=== PATIENT | female | born 1935 | race Caucasian/White ===

== ENCOUNTER → 2018-06-21 08:26 | Outpatient (CLI) | payer MEDICARE, OTHER, SELFPAY ==
[2018-06-21 10:11] LABS: Vitamin B12 281 pg/mL (239-931)
== END ==
PROVIDERS: PCP Student in an Organized Health Care Education/Training Program; Visit Provider Student in an Organized Health Care Education/Training Program
DX: E53.8 Deficiency of other specified B group vitamins (principal)
CPT/HCPCS: 36415; 82607

== ENCOUNTER → 2019-01-04 15:39 | Outpatient (CLI) | payer MEDICARE, OTHER, SELFPAY ==
[2019-01-04 17:08] LABS: BUN Creatinine Ratio 26.7 (6-22); Blood Urea Nitrogen 16 mg/dL (7-17); Calcium 9.4 mg/dL (8.4-10.2); Carbon Dioxide 27 mmol/L (22-32); Chloride 106 mmol/L (98-107); Estimated Glomerular Filt Rate > 60.0 mL/min (>60); Glucose 107 mg/dL (80-110); HEMOLYSIS < 15 (0-50); Potassium 4.8 mmol/L (3.4-5.1); Sodium 141 mmol/L (137-145)
[2019-01-04 17:26] LABS: Free T3, Triiodothyronine Free 3.62 pg/mL (2.77-5.27); Free T4, Direct Thyroxine 1.13 ng/dL (0.78-2.19); Vitamin D 25 Hydroxy (D3) 26.4 ng/mL (30.0-100.0)
[2019-01-04 17:39] LABS: Thyroid Stimulating Hormone 0.64 uIU/mL (0.47-4.68)
== END ==
PROVIDERS: PCP Student in an Organized Health Care Education/Training Program; Visit Provider Student in an Organized Health Care Education/Training Program
DX: E03.9 Hypothyroidism, unspecified (principal); M80.00XA Age-related osteoporosis with current pathological fracture, unspecified site, initial encounter for fracture; K21.9 Gastro-esophageal reflux disease without esophagitis
CPT/HCPCS: 36415; 80048; 82306; 84439; 84443; 84481

== ENCOUNTER → 2019-03-01 13:11 | Outpatient (CLI) | payer MEDICARE, OTHER, SELFPAY | PROVIDERS: PCP Student in an Organized Health Care Education/Training Program; Visit Provider Student in an Organized Health Care Education/Training Program | DX: M80.00XA Age-related osteoporosis with current pathological fracture, unspecified site, initial encounter for fracture (principal); Z78.0 Asymptomatic menopausal state | CPT/HCPCS: 77080 ==

== ENCOUNTER → 2020-07-25 13:54 | Outpatient (CLI) | payer MEDICARE, OTHER, SELFPAY ==
[2020-07-25 14:10] LABS: Bacteria Urine None Seen
[2020-07-25 15:09] LABS: Appearance Urine UA CLOUDY; Bilirubin Urine UA NEGATIVE (NEGATIVE); Color Urine UA YELLOW; Glucose Urine UA NEGATIVE (Negative); Ketones Urine UA NEGATIVE (NEGATIVE); Leukocyte Esterase Urine UA 2+ (NEGATIVE); Nitrite Urine UA NEGATIVE (Negative); Occult Blood Urine UA 1+ (Negative); Protein Urine UA NEGATIVE (Negative); Urobilinogen Urine UA 0.2 E.U./dL (0.2)
[2020-07-25 15:31] LABS: Amorphous Sediment Urine 2+; Culture Indicated Urine Specimen Cultured; RBC Urine 1-5/HPF (0-5/HPF); WBC Urine 5-10/HPF (0-5/HPF)
== END ==
PROVIDERS: PCP Student in an Organized Health Care Education/Training Program; Referring Provider Student in an Organized Health Care Education/Training Program; Visit Provider Student in an Organized Health Care Education/Training Program
DX: R30.0 Dysuria (principal)
CPT/HCPCS: 81001; 87077; 87086; 87186

== ENCOUNTER → 2020-08-16 13:39 | Outpatient (CLI) | payer MEDICARE, SELFPAY | PROVIDERS: PCP Student in an Organized Health Care Education/Training Program; Referring Provider Student in an Organized Health Care Education/Training Program; Visit Provider Student in an Organized Health Care Education/Training Program | DX: M81.0 Age-related osteoporosis without current pathological fracture (principal); Z78.0 Asymptomatic menopausal state; E55.9 Vitamin D deficiency, unspecified; Z87.891 Personal history of nicotine dependence; Z91.89 Other specified personal risk factors, not elsewhere classified | CPT/HCPCS: 77080 ==

== ENCOUNTER 2021-02-27 20:30 | Emergency (ER) | payer MEDICARE, SELFPAY ==
[2021-02-27 20:36] VITALS: BP 179/93; PULSE 77; RESP 20; TEMP 37; O2SAT 98
--- NOTE | 2021-02-27 20:44 | PC.NURSE ---
Pt states esophageal spasms causing vomiting since 1729, has had similar issues for past year. States eating slowly when she remembers prevents episodes.
--- NOTE | 2021-02-27 21:58 | ED_ITS ---
HPI - Nausea/Vomiting/Diarrhea General Chief complaint: Nausea/Vomiting/Diarrhea Stated complaint: vomiting, esophageal pain Time Seen by Provider: 02/27/21 20:45 Source: patient and family () Mode of arrival: Ambulatory Limitations: no limitations History of Present Illness HPI Narrative: This is an 86-year-old female comes to the emergency department with vomiting and esophageal pain at the lower chest shortly after eating chicken. Patient states she has had episodes where food seems to get stuck or she has a spasm of her esophagus frequently but typically clears after a minute or 2. His most recent episode started about 5:00pm this evening and she has continued to spit up filmy clear saliva like emesis. Patient states still painful and feels tight. Patient denies any fevers or chills. She denies any shortness of breath. She denies any diarrhea. No black or bloody stools. She has had mild constipation but took some MiraLax and that improved. She does have a history of Parkinson's disease. She has had multiple episodes similar to this in the past but they have always resolved on their own without any intervention. She did try Tums this evening which also came back up. She has not been able to keep down any liquids afterwards. Related Data Home Medications Medication Instructions Recorded Confirmed gabapentin 400 mg capsule 400 mg PO BEDTIME 01/04/19 10/23/20 Previous Rx's Medication Instructions Recorded carbidopa ER 50 mg-levodopa 200 mg 1 tab PO BEDTIME #30 tab 01/04/19 tablet,extended release (Sinemet CR) naproxen sodium 220 mg capsule 220 mg PO BID-TID PRN #30 cap 01/04/19 (Aleve) calcitonin (salmon) 200 1 spray INTRANASAL (ALT) DAILY 03/03/19 unit/actuation nasal spray #3.7 ml cyanocobalamin (vitamin B-12) 100 mcg IM QMONTH #1 ml 10/11/19 1,000 mcg/mL injection solution sertraline 25 mg tablet (Zoloft) 25 mg PO DAILY #90 tab 10/17/20 trazodone 50 mg tablet 50 mg PO BEDTIME PRN #90 tab 11/19/20 levothyroxine 75 mcg tablet 75 mcg PO QAM #90 tab 11/26/20 (Synthroid) Allergies Allergy/AdvReac Type Severity Reaction Status Date / Time erythromycin base Allergy Unknown Unverified 10/23/20 14:29 [From ERYTHROCIN] levofloxacin [LEVOFLOXACIN] Allergy Unknown Unverified 10/23/20 14:29 simvastatin [SIMVASTATIN] Allergy Unknown Unverified 10/23/20 14:29 Review of Systems Review of Systems ROS Unobtainable: All systems reviewed & are unremarkable except as noted in HPI and below Patient History Medical History Allergic rhinitis Chronic low back pain Chronic neck pain Closed left clavicular fracture (08/11/12) Dyskinesia of esophagus Fracture of left pelvis (05/10/13) GERD (gastroesophageal reflux disease) Graves' disease Hearing loss (~1970) History of polymyalgia rheumatica (07/2012) Hypothyroidism (1963) Loss of smell Parkinson's disease (08/2013) Pneumonia (1977) Pulmonary nodule Substernal chest pain (2001) Umbilical hernia Urinary incontinence Surgical History History of cardiac catheterization (06/17/07) History of cataract removal with insertion of prosthetic lens (2006) History of cochlear implant (1998) History of colonoscopy (08/20/10) History of colonoscopy (09/21/00) History of colonoscopy (03/09/06) History of dacryocystorhinostomy (2005) History of dental surgery (1988) History of esophagogastroduodenoscopy (EGD) (08/20/10) History of fundoplication (07/12/08) History of hand surgery (1999) History of intestinal surgery (09/07/12) History of toe surgery (~1979) History of toe surgery (1999) History of total right knee replacement (12/15/11) Status post hysterectomy (1983) Status post knee surgery (1987) Status post right rotator cuff repair (08/2005) Family History Father Diabetes mellitus Heart disease Hypertension Stroke Leukemia Mother Stroke Gallbladder disease Brother Prostate cancer Brother Colon cancer Sister Lung cancer Thyroid disease Social History Smoking Status: Never smoker Smoking Status: Never smoker Exam Narrative Exam Narrative: GENERAL: Alert and oriented x three, elderly female in mild distress. HEENT: Head normocephalic, atraumatic, EOMI, pupils reactive, face symmetric, moist mucous membranes NECK: Supple, full range of motion CARDIOVASCULAR: Regular rate and rhythm without murmurs, rubs or gallops. RESPIRATORY: Breath sounds equal bilaterally, no wheezes rales or rhonchi. ABDOMEN: Soft, nontender. Normoactive bowel sounds all 4 quadrants. No guarding or rebound, rigidity, no mass. Patient has emesis bag with small amount of clear saliva like emesis. : No CVA tenderness EXTREMITIES: Normal range of motion, no clubbing or edema. Neurovascularly intact NEUROLOGICAL: Cranial nerves II through XII grossly intact. Moving all extremities SKIN: Warm, dry, no petechiae, no rashes or lesions. Initial Vital Signs Initial Vital Signs: Vital Signs Temperature 98.6 F 02/27/21 20:36 Pulse Rate 77 02/27/21 20:36 Respiratory Rate 20 02/27/21 20:36 Blood Pressure 179/93 H 02/27/21 20:36 Pulse Oximetry 98 02/27/21 20:36 Course Orders Ordered: Discontinued Medications Glucagon (Glucagon,Human Recombinant 1 Mg/Ml Vial) 1 mg IV NOW ONE Stop: 02/27/21 22:08 Last Admin: 02/27/21 22:27 Dose: 1 mg Documented by: YESY Reevaluation(s) Reevaluation #1: Patient symptoms resolved after glucagon. Vital Signs Vital signs: Vital Signs - 8 hr 02/27/21 20:36 Temperature 98.6 F Pulse Rate 77 Respiratory Rate 20 Blood Pressure 179/93 H Pulse Oximetry 98 MDM - Nausea/Vomiting/Diarrhea Lab Data Result diagrams: 02/27/21 22:17 02/27/21 22:17 Labs: Lab Results 02/27/21 02/27/21 Range/Units 22:17 22:17 WBC 5.2 (4.5-11.0) X10^3/uL RBC 3.98 L (4.0-5.2) X10^6/uL Hgb 12.9 (12.0-16.0) g/dL Hct 39.0 (36-46) % MCV 97.9 (80-100) fL MCH 32.5 (26-34) PG MCHC 33.2 (30-36) % RDW 13.5 (11.6-14.8) % Plt Count 237 (150-400) X10^3/uL Neut % (Auto) 66.4 (50-75) % Lymph % (Auto) 22.2 L (25-40) % Ralls % (Auto) 8.7 (3-14) % Eos % (Auto) 1.9 L (2-4) % Baso % (Auto) 0.8 (0-2) % Neut # (Auto) 3500 (2638-5443) /uL Lymph # (Auto) 1200 (5109-3065) /uL Ralls # (Auto) 500 (0-900) /uL Eos # (Auto) 100 (0-450) /uL Baso # (Auto) 0 (0-100) /uL Sodium 140 (137-145) mmol/L Potassium 4.2 (3.4-5.1) mmol/L Chloride 105 (98-107) mmol/L Carbon Dioxide 28 (22-32) mmol/L BUN 17 (7-17) mg/dL Creatinine 0.72 (0.52-1.04) mg/dL Estimated GFR > 60.0 (>60) mL/min BUN/Creatinine Ratio 23.6 H (6-22) Glucose 106 (80-110) mg/dL Calcium 9.7 (8.4-10.2) mg/dL Total Bilirubin 0.6 (0.2-1.3) mg/dL AST 28 (14-36) IU/L ALT 9 (<35) IU/L Alkaline Phosphatase 78 (38-126) U/L Total Protein 7.3 (6.3-8.2) g/dL Albumin 4.4 (3.5-5.0) g/dL Globulin 2.9 (1.7-4.1) g/dL Albumin/Globulin Ratio 1.5 (1.0-2.8) Lipase 131 (23-300) U/L Imaging Data AAS: Radiologist's Impression: Negative study. MDM Narrative Medical decision making narrative: This is an 86-year-old female who has suspected food impaction. Patient was eating chicken when she felt like it got stuck in the area with spasm. She has been unable to keep anything down and has been spitting up or vomiting saliva. Patient labs and imaging were reassuring and patient responded almost immediately to glucagon with concurrent clear soda. Patient symptoms have resolved. Some of her issues may be related her Parkinson's but would be appropriate also have scope in the future to evaluate for strictures or other changes. Discharge Plan Departure Patient Disposition: Home Clinical Impression: Esophageal obstruction due to food impaction Instructions: Steakhouse Syndrome Activity Restrictions/Additional Instructions: Follow-up with your physician for recheck. If you are having frequent symptoms it may be helpful to adjust your Parkinson's medication as this can affect the movement of the esophageal muscles and may be making her symptoms worse. It would also be appropriate to follow up with General surgery or G astroenterology to have an upper EGD or scope to evaluate for any strictures or blockages that may be causing her symptoms as well. Referral is included below. Continue home medications as prescribed at this time. Make sure to chew foods very well. Please return for new or worsening symptoms, recurrent symptoms, lightheadedness or passing out, new chest pain, shortness of breath, persistent vomiting or other new or concerning symptoms. Prescriptions: No Action calcitonin (salmon) 200 unit/actuation spray,non-aerosol 1 spray intranasal (ALT) DAILY Qty: 3.7 RF: 11 trazodone 50 mg tablet 50 mg PO BEDTIME PRN (Reason: insomnia) Qty: 90 RF: 3 levothyroxine [Synthroid] 75 mcg tablet 75 mcg PO QAM Qty: 90 RF: 3 gabapentin 400 mg capsule 400 mg PO BEDTIME RF: 0 carbidopa-levodopa [Sinemet CR] 50-200 mg tablet extended release 1 tab PO BEDTIME Qty: 30 RF: 0 naproxen sodium [Aleve] 220 mg capsule 220 mg PO BID-TID PRN (Reason: pain) Qty: 30 RF: 0 sertraline [Zoloft] 25 mg tablet 25 mg PO DAILY Qty: 90 RF: 3 cyanocobalamin (vitamin B-12) 1,000 mcg/mL solution 100 mcg IM QMONTH Qty: 1 RF: 11 Referrals: Fabricio Sinclair MD [Primary Care Provider] - Devan Cortez MD [Physician] -
--- NOTE | 2021-02-27 22:08 | DI.RAD.S_ITS ---
PROCEDURE: XR ACUTE ABDOMEN SERIES INDICATIONS: vomiting shortly after eating, ? food bolus TECHNIQUE: One view chest and two views of the abdomen were acquired. COMPARISON: None. FINDINGS: Surgical changes and devices: None. Chest: Lungs are clear. Heart size is normal. No pleural effusions. No pneumoperitoneum. Lungs hyperinflated suggesting COPD. Abdomen: Bowel gas pattern is nonspecific No suspicious calcifications. Visualized solid organ contours appear normal. Bones: No suspicious bony lesions. S shaped scoliosis of the spine. IMPRESSION: Nonspecific bowel gas pattern without evidence of obstruction. If patient's symptoms persist or worsen consider CT scan of the abdomen pelvis for further evaluation. Dictated by: Gerri Nunez MD, PhD on 02/28/2021 at 8:26 Approved by: Gerri Nunez MD, PhD on 02/28/2021 at 8:27
[2021-02-27 22:24] LABS: Add Manual Diff / Slide Review NO; Basophils Absolute Auto 0 /uL (0-100); Basophils Percent Auto 0.8 % (0-2); Eosinophils Absolute Auto 100 /uL (0-450); Eosinophils Percent Auto 1.9 % (2-4); Hemoglobin 12.9 g/dL (12.0-16.0); Lymphocytes Absolute Auto 1200 /uL (1100-4500); Lymphocytes Percent Auto 22.2 % (25-40); Mean Corpuscular HGB Conc 33.2 % (30-36); Mean Corpuscular Hemoglobin 32.5 PG (26-34); Mean Corpuscular Volume 97.9 fL (80-100); Monocytes Absolute Auto 500 /uL (0-900); Monocytes Percent Auto 8.7 % (3-14); Neutrophils Absolute Auto 3500 /uL (1500-7000); Neutrophils Percent Auto 66.4 % (50-75); Platelet Count 237 X10^3/uL (150-400); Red Blood Cell Count 3.98 X10^6/uL (4.0-5.2); Red Cell Distribution Width 13.5 % (11.6-14.8); White Blood Cell Count 5.2 X10^3/uL (4.5-11.0)
[2021-02-27] MEDS: GLUCAGON,HUMAN RECOMBINANT 1 MG/ML VIAL IV (22:27)
[2021-02-27 22:34] LABS: Alanine Aminotransferase 9 IU/L (<35); Albumin 4.4 g/dL (3.5-5.0); Albumin Globulin Ratio 1.5 (1.0-2.8); Alkaline Phosphatase 78 U/L (38-126); Aspartate Aminotransferase 28 IU/L (14-36); BUN Creatinine Ratio 23.6 (6-22); Bilirubin Total 0.6 mg/dL (0.2-1.3); Blood Urea Nitrogen 17 mg/dL (7-17); Calcium 9.7 mg/dL (8.4-10.2); Carbon Dioxide 28 mmol/L (22-32); Chloride 105 mmol/L (98-107); Estimated Glomerular Filt Rate > 60.0 mL/min (>60); Globulin 2.9 g/dL (1.7-4.1); Glucose 106 mg/dL (80-110); HEMOLYSIS < 15 (0-50); Lipase 131 U/L (23-300); Potassium 4.2 mmol/L (3.4-5.1); Sodium 140 mmol/L (137-145); Total Protein 7.3 g/dL (6.3-8.2)
[2021-02-27 23:09] VITALS: BP 175/72; PULSE 66; RESP 16; O2SAT 99
== END 2021-02-27 23:10 | disposition home or self-care (01) ==
PROVIDERS: Emergency Provider Emergency Medicine; PCP Student in an Organized Health Care Education/Training Program
DX: K22.2 Esophageal obstruction (principal)
CPT/HCPCS: 36415; 74022; 80053; 83690; 85025; 96374; 99284; J1610

== ENCOUNTER 2021-06-05 14:47 | Outpatient (RCR) | payer MEDICARE, SELFPAY ==
--- NOTE | 2021-06-05 17:07 | ST.OPIE ---
Visit Care Team Role Provider Type Fabricio Sinclair MD Family Provider Physician Primary Care Provider Specialty: Internal Medicine Address: [address] [place] [address], [address], [place], [address] Email: [email or web address] Keven Parisi MD Attending Provider Non-Staff Referring Provider Specialty: Neurology Address: [address] [facility], [place], [address] Email: Speech-Language Pathology Initial Evaluation T[employer] MACHINE [employer]ER Clinical Swallow Evaluation Start: 06/05/21 15:27 Freq: Status: Active Protocol: Document 06/05/21 15:28 GABBY (Rec: 06/05/21 17:04 GABBY [email or web address]) Clinical Swallow Evaluation Session Time Visit Start Time 15:30 Visit Stop Time 16:20 Total Visit Minutes 50 Visit Information Visit Number Initial Evaluation Plan of Care Dates 06/05/21 - 09/05/21 Insurance Information A[employer] Medicare Referral Referring Provider Dr. Keven Parisi Reason for Referral Oropharyngeal Dysphagia, Parkinson's disease Setting Assessment Location Outpatient Care Visit Type Note Type Initial evaluation Next Note Type Next Note Type Treatment Note Patient Information Identification Type Name,ID Card History The pt is an 86-yr-old female with Parkinson's disease, dx Aug 2013. She has occasional difficulty with swallowing (~ 1x/10-14 days), particularly if eating too quickly, which leads to regurgitation. gets concerned he might need ambulance, though has not yet called for one. Pt went to hospital once when she could not stop dry heaves after such vomiting. Symptoms were successfully treated in ER. The pt denies concern of airway compromise with oral intake (i.e., coughing, aspiration). She has frequent dry mouth, which does make it more difficult to eat dry foods. PMHx is significant for hearing loss; pt wears cochlear implant. Additionally , she reports arthritis, headaches, knee replacement, memory loss, neck pain, neuropathy, hypothyroidism, and abdominal blockage requiring surgery. Pt had Angelica fundoplication surgery for hiatal hernia years ago, prior to PD dx. Subjective Observations The pt arrived on time accompanied by her , who is a retired physician and also with possible diagnosis of PD (suspected but not yet confirmed). The pt is a retired school psychologist and fixed assets accountant. The couple provided case history secondary to medical records, as described above. Reported by Patient Other Symptoms Food gets stuck Current Diet Regular,Thin liquids Baseline Feeding Method Independent in self-feeding Patient Questionnaire No Objective Assessment Mental Status Alert,Responsive,Cooperative Oral Integrity Xerostomia/Dry mouth Dentition Within normal limits Lip Function Within normal limits Observation of Lips at Rest Symmetrical Pucker Within normal limits Lip Retraction Within normal limits Alternating Pucker/Lip Retraction Within normal limits Tongue Function Within normal limits Observations of Tongue at Rest Within normal limits Tongue Protrusion Within normal limits Tongue Lateralization Within normal limits Jaw Function Within normal limits Observations of Jaw at Rest Within normal limits Jaw Opening Within normal limits Jaw Closing Within normal limits Jaw Lateralization Within normal limits Hard/Soft Palate Function Within normal limits Observations of Hard/Soft Palate Within normal limits Nasality Within normal limits Phonation Within normal limits Respiratory Sufficiency Within normal limits Comment Mild tremor observed at lower lip/chin with tight lip pursing. Food and Liquid Trials Position During Assessment Upright (90 degrees) Liquids Trialed Thin Solids Trialed Puree,Mechanical Soft,Regular Administration Type Cup single sip,Cup consecutive sips,Self-feeding Oral Impairment Mildly impaired Oral Phase Comments Multiple swallows required and mild-moderate oral residue post-swallow with dry textures (string cheese and dry cracker), requiring liquid wash and additional bite of peaches to clear. Likely secondary to xerostomia. Pharyngeal Impairment Within normal limits Pharyngeal Phase Comments No overt s/sx of pharyngeal dysphagia or aspiration were observed. Fatigue/Endurance Endurance WNL Comment The pt denied feelings of food backing up with these limited trials but stated, It would happen if I continued [ eating the dry foods]. Findings Swallowing Function Oral phase dysphagia Swallowing Function Comments Suspect esophageal dysphagia Severity of Swallow Impairment Mildly impaired Comments Reduced saliva production Prognosis Good Based on Cognitive status,Family support,History of aspiration/ aspiration pneumonia,Duration of symptoms/severity Comment Pt presents with mild oral dysphagia secondary to reduced saliva production impacting her ability to masticate and clear dry textures. She did not present with overt s/sx of aspiration during clinical bedside evaluation. However, a Modified Barium Swallow Study is recommended for more thorough evaluation of swallow function, including screening of the esophagus, as esophageal dysphagia is suspected based on pt's reported symptoms and history of hiatal hernia. This may also be impacted by xerostomia , as well as eating behaviors, particularly eating large bites and eating quickly. MBSS will also provide objective baseline of swallow function, as symptoms may worsen and/or change in the future with progression of Parkinson's disease. All questions were answered, including questions related to the pt's 's symptoms. Information was provided orally and in writing RE potential symptoms of Parkinson's disease that can be addressed by Speech Therapy , including swallow, speech intelligibility, voice, language and cognition and including LSVT-Loud treatment. The pt's was encouraged to request MD orders for Speech Therapy to address his symptoms, as well, should he desire an assessment of his symptoms. Additionally, information was provided in writing RE communication strategies in the presence of hearing loss. Comments Risk of complications from extensive vomiting. Recommendations Instrumental Assessment Yes Swallowing Treatment Yes Frequency 1-5 visits, depending on MBSS results Duration over 1-2 mos Recommended Solids Regular Recommended Liquids Thin Safety Precautions/Swallowing Remain upright (90 degrees) Recommendations during all oral intake,Upright position at least 30 minutes after meals,Small bites and sips when eating,Slow rate; swallow between bites Medication Recommendations As Tolerated Referrals Recommended Referrals Gastroenterology Education Patient/Caregiver Education Described results of evaluation,Patient expressed understanding of evaluation, Patient expressed agreement with goals & treatment plans, Family/caregivers expressed understanding of evaluation, Family/caregivers expressed agreement with goals & treatment plans,Patient expressed understanding of safety precautions,Patient expressed understanding of feeding recommendations,Family /caregivers expressed understanding of safety precautions,Family/caregivers expressed understanding of feeding recommendations Goals Short-term Goals 1. The pt will participate in Modified Barium Swallow Study for further evaluation of swallow function/safety and to guide POC. 2. The pt will follow safe swallow strategies independently to reduce symptoms of dysphagia and increase safety and comfort with oral intake. Additional goals to be developed pending MBSS results. Long-term Goals 1. The pt will tolerate least restrictive diet to meet her nutrition and hydration needs.
--- NOTE | 2022-02-12 14:38 | ST.IPDYTX ---
Visit Care Team Role Provider Type Fabricio Sinclair MD Family Provider Physician Primary Care Provider Specialty: Internal Medicine Address: [address] [place] [address], [address], [place], [address] Email: [email or web address] Keven Parisi MD Attending Provider Non-Staff Referring Provider Specialty: Neurology Address: [address] [place], [address] Email: [employer] AND [employer]TERATION TAILOR Dysphagia Treatment [employer] TAILOR Dysphagia Treatment Start: 06/05/21 15:27 Freq: Status: Active Protocol: Document 02/12/22 14:31 GABBY (Rec: 02/12/22 14:32 GABBY [id number]) Dysphagia Treatment Setting Assessment Location Outpatient Care Visit Type Note Type Discharge Summary Patient Information Subjective Observations The pt was seen for initial evaluation in May 2021 when orders for MBSS were requested. The pt has not returned for treatment, and no record of MBSS is found at [facility]. The pt is discharged from services. Treatment Plan Appropriate for Continued Therapy No Dysphagia Goals 1. The pt will participate in Modified Barium Swallow Study for further evaluation of swallow function/safety and to guide POC. 2. The pt will follow safe swallow strategies independently to reduce symptoms of dysphagia and increase safety and comfort with oral intake. Additional goals to be developed pending MBSS results . 1. The pt will tolerate least restrictive diet to meet her nutrition and hydration needs.
== END 2022-02-19 13:23 ==
LOC: SP 14:47
PROVIDERS: Family Provider Student in an Organized Health Care Education/Training Program; PCP Student in an Organized Health Care Education/Training Program; Referring Provider Psychiatry & Neurology Neurology; Visit Provider Psychiatry & Neurology Neurology
DX: G20 Parkinson's disease (principal); R13.12 Dysphagia, oropharyngeal phase
CPT/HCPCS: 92610

== ENCOUNTER → 2021-08-12 13:07 | Outpatient (CLI) | payer OTHER, SELFPAY ==
--- NOTE | 2021-08-12 13:15 | DI.RAD.S_ITS ---
PROCEDURE: FL BARIUM SWALLOW W SPEECH INDICATIONS: DYSPHAGIA COMPARISON: TECHNIQUE: Examination was conducted in conjunction with speech pathology per standard protocol. In the lateral projection, filming was performed of the patient swallowing. AP projection filming may also be performed with patient swallowing. COMPARISON: [facility], [place], ABDOMEN/PELVIS WITH CONTRAST, 09/04/2012, 15:23. FINDINGS: Function: There is mildly delayed oral phase with mild spillage to the epiglottis. The pharyngeal phase is within normal limits. There is mild residue at the lower pharynx and upper esophagus esophageal particularly with the thicker barium. No laryngotracheal penetration or aspiration. No pathologic vallecular pooling. The barium tablet demonstrates delayed passage at the gastroesophageal junction. There are tertiary mid and lower esophageal contractions. There is diminished peristaltic stripping. The bolus passes with additional water. Morphology: No cricopharyngeal bar is identified. No cervical esophageal webs. No Zenker's diverticulum. No strictures. Suspect small sliding-type hiatal hernia. IMPRESSION: No aspiration. Mildly diminished oral phase. Residue at the lower pharynx and upper/mid esophagus. Tertiary esophageal contractions suggesting presbyesophagus. Dictated by: Humphrey Diaz M.D. on 08/12/2021 at 15:12 Approved by: Humphrey Diaz M.D. on 08/12/2021 at 15:18
--- NOTE | 2021-08-12 17:12 | ST.SWALLOW ---
Visit Care Team Role Provider Type Fabricio Sinclair MD Family Provider Physician Primary Care Provider Specialty: Internal Medicine Address: [address] [place] [address], [address], [place], [address] Email: [email or web address] Keven Parisi MD Attending Provider Non-Staff Referring Provider Specialty: Neurology Address: [address] [facility], [place], [address] Email: Modified Barium Swallow Study ASSISTANT MANAGER Modified Barium Swallow Study Start: 08/12/21 18:16 Freq: Status: Active Protocol: Document 08/12/21 18:16 GABBY (Rec: 08/12/21 18:16 GABBY [id number]) Modified Barium Swallow Study Total Time Visit Start Time 13:30 Visit Stop Time 14:10 Total Visit Minutes [address] Keven Parisi Reason for Referral Dysphagia Setting Setting Outpatient Care Patient Information Identification Type Name,ID Card Patient History The pt is an 86-yr-old female familiar to this ASSISTANT MANAGER from outpatient rehab clinic, seen 06/05/21 for swallow evaluation. The pt was diagnosed with Parkinson's disease in August 2013. She reports occasional difficulty with swallowing (~1x/10-14 days), particularly if eating too quickly, which leads to regurgitation. Pt went to hospital once when she could not stop dry heaves after such vomiting. Symptoms were successfully treated in ER. She reported that last night vomiting was triggered after only two bites of pasta with tomato sauce. The pt denies concern of airway compromise with oral intake (i.e., coughing, aspiration). She has frequent dry mouth, which does make it more difficult to eat dry foods. Clinical swallow evaluation on 06/05/21 revealed mild oral dysphagia secondary to reduced saliva production impacting her ability to masticate and clear dry textures. She did not present with overt s/sx of aspiration during clinical bedside evaluation. However, a Modified Barium Swallow Study was recommended for more thorough evaluation of swallow function, including screening of the esophagus, as esophageal dysphagia was suspected based on pt's reported symptoms. There is a possible hx of hiatal hernia years ago, prior to PD dx; the pt reported this during initial clinical evaluation but does not recall that today . Medical records indicate hx of bowel obstruction. The pt also has significant hearing loss and wears a cochlear implant. Subjective Observations The pt arrived on time accompanied by her daughter, who was present for review of initial findings immediately following MBSS completion. Due to the pt's hearing loss and need of reading lips, this clinician wore a clear face shield rather than face mask as a COVID-19 precaution. The pt was able to comprehend all of the clinician's speech and follow all directions. Patient Positioning Position View Lat-A/P Imaging Lateral View Textures Administered Trials Presented Thin Liquid via Spoon,Thin Liquid via Cup,Canadian Liquid via Spoon,Canadian Liquid via Cup,Honey Liquid via Spoon, Dysphagia Blenderized Textures ,Regular Textures Oral Phase Source: MBSIMP (TM) (C) Bolus Specific Scoring Grid Lip Closure No Impairment (WNL) Tongue Control During Bolus Hold No Impairment (WNL) Bolus Prep/Mastication Minimal Impairment Bolus Transport/Lingual Motion Mild Impairment A/P Lingual Propulsion Delay Yes: With paste and cookie trial only. Oral Residue Mild Impairment Residue Clearing Mild Impairment Nasal Regurgitation No Additional Oral Phase Observations Oral Peripheral Exam: Features are WNL of strength, coordination and ROM. Occasional mild labial tremor noted. Pt has normal dentition in adequate condition for age . Features are symmetrical. Oral Phase: Moderately increased effort for a/p propulsion noted with paste and cookie trials, likely d/t xerostomia and consistent with the pt's complaints. Mild- moderate oral residue resulted as an effect, which cleared with multiple additional swallows, dry and/or of liquid . Occasional mild escape of residue to back of tongue and vallecula was noted, indicating mild lingual weakness and potential sensory deficit, not uncommon for the pt's age. Pharyngeal Phase Source: MBSIMP (TM) (C) Bolus Specific Scoring Grid Delayed Initiation of Pharyngeal Swallow No Soft Palate Elevation No Impairment (WNL) Tongue Base Strength/Range of Motion Mild Impairment Residue Along the Tongue Base Yes: Trace to mild Clearance of Residue Along Tongue Base WFL Laryngeal Elevation No Impairment (WNL) Anterior Hyoid Movement No Impairment (WNL) Epiglottic Range of Motion No Impairment (WNL) Vallecular Residue Yes: Trace to mild. Moderate collection of oral residue escape x1 noted. Clearance of Vallecular Residue WFL Laryngeal Vestibular Closure No Impairment (WNL) Pharyngeal Stripping Wave Mild Impairment Pharyngeal Contraction No Impairment (WNL) Posterior Pharyngeal Wall Residue No Upper Esophageal Sphincter Opening WFL Residue in the Pyriform Sinuses Yes: Trace, outlining osteophyte Clearance of Residue in the Pyriform WFL Sinuses Esophageal Clearance Upright Position Mild Impairment Pharyngoesophageal Backflow Observed No: Residue observed at proximal esophagus, level C7 below osteophyte Additional Pharyngeal Phase Observations A cricopharyngeal-type bar was observed at the level of C4- C5, higher than a typical CP bar. Consulted with Radiologist, who expressed no significant concern. Additionally, a prominent osteophyte was noted at C6-C7, which impacted bolus flow but did not interfere with pharyngeal clearance. Mild to moderate residue was observed below this level at proximal esophagus post-swallow, greater with thicker bolus bulk (i.e., paste and cookie trials) and cleared with thin liquid wash. No laryngeal penetration or tracheal aspiration was observed. Mildly reduced strength of pharyngeal constrictors and base of tongue observed, consistent with pt's age. A/P View Textures Administered Trials Presented Canadian Liquid via Cup,Barium Tablet A/P View Observations Pharyngeal Contraction No Impairment (WNL) Esophageal Function Slowed Clearing Esophageal Clearance Upright Position Mild Impairment Esophageal Observations Esophageal Function Upon initial A/P viewing, residual barium paste was observed at mid esophagus. This passed with swallows of water. Per Radiologist report, The barium tablet demonstrates delayed passage at the gastroesophageal junction. There are tertiary mid and lower esophageal contractions. There is diminished peristaltic stripping. Please refer to complete Radiologist report. The barium tablet was not observed to pass through LES during viewing, desite additional sips of water. Recommend GI consultation to determine if esophageal deficits contribute to episodes of vomiting. Clinical Impressions Dysphagia Type Mild Oropharyngeal Dysphagia/ Presbyphagia Findings The pt presents with mild oropharyngeal dysphagia, likely presbyphagia but worsened by xerostomia which slows bolus preparation and A/P transit in the oral swallow phase. Mild weakness of lingual and pharyngeal musculature was observed but does not significantly impact pharyngeal swallow phase. A prominent osteophyte was observed at C6-C7, which alters bolus flow but does not prevent pharyngeal clearance. Residue around the osteophyte was noted, greater below it in the proximal esophagus, particularly with increased bolus bulk. This cleared with liquid wash. While oral and pharyngeal swallow function is largely normal for the pt's age, the pt does have Parkinson's disease, which commonly leads to dysphagia with disease progression. Outpatient dysphagia therapy is recommended at this time for further education and to equip the pt with exercises and strategies for improving strength and minimizing worsening of symptoms and risk of aspiration with Parkinson's disease progression. Additionally, screening of the esophagus indicated teriary esophageal contractions and diminished peristaltic stripping, which are suspected as contributors to episodes of regurgitation. The pt was instructed to consume small bites and sips at a slow rate and alternate solids and liquids to assist in esophageal clearance. Consultation with GI is strongly recommended for thorough evaluation and treatment as indicated to promote clearance for adequate nutrition. The pt is very thin and may be at risk of inadequate nutrition and unhealthy weight loss. Treatment for xerostomia is also recommended to improve oral prep and swallow phases. The pt is referred to her PCP for this. These recommendations were made the the pt and her daughter, who were in agreement. Rehabilitation Potential Excellent Patient Appropriate for Therapy Yes Recommendations Diet Liquids Order Thin Diet Order Regular Medication Recommendation As Tolerated Comments Added moisture to foods is recommended. Aspiration Precautions Recommended Precautions Upright at 90 Degrees, Alternate Liquids/Solids, Frequent Rest Periods,Small Bites/Sips Treatment Plan Therapy Recommendations Outpatient Speech Therapy Recommended Referrals Primary Care Physician,GI Consult Compensatory Strategies Recommendations Sitting Upright (90 deg),Small Bites and Sips,Alternate Liquids/Solids Short Term Goals 1. The pt will follow safe swallow strategies to improve swallow function and reduce episodes of discomfort and regurgitation with oral intake and to consume adequate nutrition to meet her health needs. 2. The pt will perform exercises to improve strength, coordination and ROM of swallow musculature to improve swallow function and promote safety over the course of disease progression. Senior Care Goals 1. The pt will tolerate regular textures and thin liquids safely and without discomfort or regurgitation in order to meet her nutrition and hydration needs.
== END ==
PROVIDERS: Family Provider Student in an Organized Health Care Education/Training Program; PCP Student in an Organized Health Care Education/Training Program; Referring Provider Psychiatry & Neurology Neurology; Visit Provider Psychiatry & Neurology Neurology
DX: R13.12 Dysphagia, oropharyngeal phase (principal)
CPT/HCPCS: 74230; 92611

== ENCOUNTER → 2021-12-19 14:31 | Outpatient (CLI) | payer OTHER, SELFPAY ==
--- NOTE | 2021-12-19 14:33 | DI.RAD.S_ITS ---
PROCEDURE: XR HIP W PEL IF DONE LT 2V INDICATIONS: Left hip pain; history of left pelvis TECHNIQUE: AP pelvis with lateral view(s) of the left hip(s). COMPARISON: None. FINDINGS: Bones: No fractures or dislocations. Pelvic ring appears intact. No suspicious bony lesions. Mild joint space narrowing and periarticular osteophyte formation at the bilateral hip joints. Chronic appearing left obturator ring fracture. Soft tissues: The visualized bowel gas pattern is normal. No suspicious soft tissue calcifications. IMPRESSION: 1. Bilateral hip osteoarthritis. 2. Chronic left obturator ring fracture. 3. No acute fracture. No osseous lesion. If symptoms and/or clinical suspicion for pathology persist, further assessment with repeat, or advanced imaging (e.g., CT, MRI, or bone scan) may be helpful for further assessment. Dictated by: Ksenia Bowen M.D. on 12/19/2021 at 15:52 Approved by: Ksenia Bowen M.D. on 12/19/2021 at 16:59
== END ==
PROVIDERS: Family Provider Student in an Organized Health Care Education/Training Program; PCP Student in an Organized Health Care Education/Training Program; Referring Provider Student in an Organized Health Care Education/Training Program; Visit Provider Student in an Organized Health Care Education/Training Program
DX: M84.454A Pathological fracture, pelvis, initial encounter for fracture (principal); M25.552 Pain in left hip; M16.0 Bilateral primary osteoarthritis of hip; G89.29 Other chronic pain
CPT/HCPCS: 73502

== ENCOUNTER 2022-03-11 13:22 | Inpatient (IN) | payer OTHER, SELFPAY ==
[2022-03-11] VITALS (16 sets, daily range): BP systolic 112–188; BP diastolic 51–77; PULSE 51–83; RESP 20–24; TEMP 36.6–37.3; O2SAT 91–98; BMI 14.8
[2022-03-11 14:44] LABS: Add Manual Diff / Slide Review NO; Basophils Absolute Auto 0 /uL (0-100); Basophils Percent Auto 0.4 % (0-2); Eosinophils Absolute Auto 0 /uL (0-450); Eosinophils Percent Auto 0.3 % (2-4); Hematocrit 36.1 % (36-46); Hemoglobin 12.1 g/dL (12.0-16.0); Lymphocytes Absolute Auto 600 /uL (1100-4500); Lymphocytes Percent Auto 11.3 % (25-40); Mean Corpuscular HGB Conc 33.6 % (30-36); Mean Corpuscular Hemoglobin 32.9 PG (26-34); Mean Corpuscular Volume 97.9 fL (80-100); Monocytes Absolute Auto 500 /uL (0-900); Monocytes Percent Auto 10.2 % (3-14); Neutrophils Absolute Auto 4000 /uL (1500-7000); Neutrophils Percent Auto 77.8 % (50-75); Platelet Count 347 X10^3/uL (150-400); Red Blood Cell Count 3.68 X10^6/uL (4.0-5.2); Red Cell Distribution Width 13.6 % (11.6-14.8); White Blood Cell Count 5.1 X10^3/uL (4.5-11.0)
[2022-03-11 14:51] LABS: Alanine Aminotransferase 6 IU/L (<35); Albumin 3.9 g/dL (3.5-5.0); Albumin Globulin Ratio 1.5 (1.0-2.8); Alkaline Phosphatase 75 U/L (38-126); Aspartate Aminotransferase 32 IU/L (14-36); BUN Creatinine Ratio 21.4 (6-22); Bilirubin Total 0.9 mg/dL (0.2-1.3); Blood Urea Nitrogen 18 mg/dL (7-17); Calcium 8.2 mg/dL (8.4-10.2); Carbon Dioxide 25 mmol/L (22-32); Chloride 107 mmol/L (98-107); Estimated Glomerular Filt Rate > 60 mL/min (>60); Globulin 2.6 g/dL (1.7-4.1); Glucose 100 mg/dL (80-110); HEMOLYSIS 15 (0-50); Lipase 22 U/L (23-300); Sodium 139 mmol/L (137-145); Total Protein 6.5 g/dL (6.3-8.2)
--- NOTE | 2022-03-11 14:52 | ED.NAVMDI ---
HPI - Nausea/Vomiting/Diarrhea General Chief complaint: Nausea/Vomiting/Diarrhea Stated complaint: Not eating/drinking, N/V/D - COVID+ 11 days ago Time Seen by Provider: 03/11/22 14:34 Source: patient Mode of arrival: Ambulatory History of Present Illness HPI Narrative: The patient is a maria c 87-year-old female with history of Parkinson's diagnosed with COVID about 10 or 11 days ago. It is though she started having explosive diarrhea about 4 days ago. She says she was multiple times a day it is nonbloody is very liquid. She occasionally has some abdominal cramping but is not too terrible. Minimal nausea she is able to drink some fluids. Grandson is trying to make her eat and drink. However she has had extreme fatigue weakness. She feels dizzy and lightheaded whenever she stands up. Related Data Home Medications Medication Instructions Recorded Confirmed gabapentin 400 mg capsule 400 mg PO BEDTIME 01/04/19 12/19/21 gabapentin 100 mg capsule 100 mg PO DAILY 12/19/21 12/19/21 Previous Rx's Medication Instructions Recorded carbidopa ER 50 mg-levodopa 200 mg 1 tab PO BEDTIME #30 tabs 01/04/19 tablet,extended release (Sinemet CR) naproxen sodium 220 mg capsule 220 mg PO BID-TID PRN pain #30 caps 01/04/19 (Aleve) cyanocobalamin (vitamin B-12) 100 mcg (0.1 mL) IM QMONTH #1 mL 10/11/19 1,000 mcg/mL injection solution levothyroxine 75 mcg tablet 75 mcg PO QAM #90 tabs 10/10/21 (Synthroid) trazodone 50 mg tablet 50 mg PO BEDTIME PRN insomnia #90 11/27/21 tabs sertraline 25 mg tablet (Zoloft) 25 mg PO DAILY #90 tabs 12/12/21 Allergies Allergy/AdvReac Type Severity Reaction Status Date / Time erythromycin base Allergy Unknown Unverified 12/19/21 13:56 [From ERYTHROCIN] levofloxacin [LEVOFLOXACIN] Allergy Unknown Unverified 12/19/21 13:56 simvastatin [SIMVASTATIN] Allergy Unknown Unverified 12/19/21 13:56 Review of Systems Review of Systems Narrative: GENERAL: Denies chills, fatigue, malaise, fever, sweats, travel HEENT: Denies sinus pain, ear pain, sore throat, difficulty swallowing, neck pain RESPIRATORY: Denies dyspnea, cough, wheezing, hemoptysis, sputum. CARDIOVASCULAR: Denies chest pain, palpitations, orthopnea, edema GASTROINTESTINAL: See HPI : Denies dysuria, frequency, incontinence, hematuria, urinary retention, flank pain. MUSCULOSKELETAL: Denies weakness, joint pain, or bony pain SKIN: No rash, no erythema, no pruritus NEUROLOGIC: Denies weakness, dizziness, headache, numbness, change in speech, confusion PSYCHIATRIC: No concerning psychosocial issues. 12 point review of systems is negative except for those stated above and HPI Patient History Medical History Allergic rhinitis Chronic low back pain Chronic neck pain Closed left clavicular fracture (08/11/12) Dyskinesia of esophagus Fracture of left pelvis (05/10/13) GERD (gastroesophageal reflux disease) Graves' disease Hearing loss (~1970) History of polymyalgia rheumatica (07/2012) Hypothyroidism (1963) Loss of smell Parkinson's disease (08/2013) Pneumonia (1977) Pulmonary nodule Substernal chest pain (2001) Umbilical hernia Urinary incontinence Surgical History History of cardiac catheterization (06/17/07) History of cataract removal with insertion of prosthetic lens (2006) History of cochlear implant (1998) History of colonoscopy (08/20/10) History of colonoscopy (09/21/00) History of colonoscopy (03/09/06) History of dacryocystorhinostomy (2005) History of dental surgery (1988) History of esophagogastroduodenoscopy (EGD) (08/20/10) History of fundoplication (07/12/08) History of hand surgery (1999) History of intestinal surgery (09/07/12) History of toe surgery (~1979) History of toe surgery (1999) History of total right knee replacement (12/15/11) Status post hysterectomy (1983) Status post knee surgery (1987) Status post right rotator cuff repair (08/2005) Family History Father Diabetes mellitus Heart disease Hypertension Stroke Leukemia Mother Stroke Gallbladder disease Brother Prostate cancer Brother Colon cancer Sister Lung cancer Thyroid disease Social History Smoking Status: Never smoker Smoking Status: Never smoker Exam Initial Vital Signs Initial Vital Signs: Vital Signs Temperature 97.8 F 03/11/22 13:48 Pulse Rate 67 03/11/22 13:48 Respiratory Rate 24 03/11/22 13:48 Blood Pressure 112/51 L 03/11/22 13:48 Pulse Oximetry 97 03/11/22 13:48 Oxygen Delivery Method 03/11/22 13:48 GENERAL: Very thin alert 87-year-old female and in no acute distress. HEENT: Head atraumatic,EOMI, pupils reactive, face symmetric, slightly dry mucous membranes CARDIOVASCULAR: Regular rate and rhythm without murmurs, rubs or gallops. RESPIRATORY: Breath sounds equal bilaterally, no wheezes rales or rhonchi. ABDOMEN: Soft, nontender nondistended EXTREMITIES: Normal range of motion, no clubbing or edema. Neurovascularly intact NEUROLOGICAL: Alert and oriented x4. SKIN: Warm, dry, no laceration, no petechiae, no rashes or lesions. Course Orders Ordered: ED Orders 03/11/22 14:00 Complete Blood Count AUTO DIFF Stat Comprehensive Metabolic Panel Stat Lipase Stat 03/11/22 16:09 COVID19 -Nasal RAPID/Pre-Proc Stat 03/11/22 16:25 GI Panel (Film Array) Stat Acetaminophen (Acetaminophen 325 Mg Tablet) 650 mg PO Q6HR PRN PRN Reason: Fever/Mild Pain (1-3) POTASSIUM CHLORIDE IN WATER (Potassium Cl 10 Meq/100 Ml Cheryl) 10 meq in 100 mls @ 100 mls/hr IV Q1H INGRID Stop: 03/11/22 21:59 Ondansetron HCl (Ondansetron 4 Mg/2 Ml Inj) 4 mg IV Q8HR PRN PRN Reason: Nausea And Vomiting Vital Signs Vital signs: Vital Signs - 8 hr 03/11/22 13:48 03/11/22 14:06 03/11/22 14:06 Temperature 97.8 F Pulse Rate 67 60 Respiratory Rate 24 Blood Pressure 112/51 L 135/55 L Pulse Oximetry 97 98 Oxygen Delivery Method Room Air 03/11/22 14:30 03/11/22 14:30 03/11/22 15:00 Temperature Pulse Rate 51 L 55 L Respiratory Rate Blood Pressure 121/58 L Pulse Oximetry 97 Oxygen Delivery Method 03/11/22 15:01 03/11/22 15:01 03/11/22 15:30 Temperature Pulse Rate 58 L 59 L Respiratory Rate Blood Pressure 116/51 L Pulse Oximetry 94 97 Oxygen Delivery Method 03/11/22 15:31 03/11/22 15:31 03/11/22 16:00 Temperature Pulse Rate 59 L 60 Respiratory Rate Blood Pressure 116/53 L Pulse Oximetry 98 91 Oxygen Delivery Method 03/11/22 16:01 03/11/22 16:01 Temperature Pulse Rate 60 Respiratory Rate Blood Pressure 141/58 H Pulse Oximetry 93 Oxygen Delivery Method MDM - Nausea/Vomiting/Diarrhea Lab Data Result diagrams: 03/11/22 14:00 03/11/22 14:00 Labs: Lab Results 03/11/22 03/11/22 Range/Units 14:00 14:00 WBC 5.1 (4.5-11.0) X10^3/uL RBC 3.68 L (4.0-5.2) X10^6/uL Hgb 12.1 (12.0-16.0) g/dL Hct 36.1 (36-46) % MCV 97.9 (80-100) fL MCH 32.9 (26-34) PG MCHC 33.6 (30-36) % RDW 13.6 (11.6-14.8) % Plt Count 347 (150-400) X10^3/uL Neut % (Auto) 77.8 H (50-75) % Lymph % (Auto) 11.3 L (25-40) % [place] % (Auto) 10.2 (3-14) % Eos % (Auto) 0.3 L (2-4) % Baso % (Auto) 0.4 (0-2) % Neut # (Auto) 4000 (9891-6441) /uL Lymph # (Auto) 600 L (6381-8143) /uL [place] # (Auto) 500 (0-900) /uL Eos # (Auto) 0 (0-450) /uL Baso # (Auto) 0 (0-100) /uL Sodium 139 (137-145) mmol/L Potassium 2.3 L* (3.4-5.1) mmol/L Chloride 107 (98-107) mmol/L Carbon Dioxide 25 (22-32) mmol/L BUN 18 H (7-17) mg/dL Creatinine 0.84 (0.52-1.04) mg/dL Estimated GFR > 60 (>60) mL/min BUN/Creatinine Ratio 21.4 (6-22) Glucose 100 (80-110) mg/dL Calcium 8.2 L (8.4-10.2) mg/dL Total Bilirubin 0.9 (0.2-1.3) mg/dL AST 32 (14-36) IU/L ALT 6 (<35) IU/L Alkaline Phosphatase 75 (38-126) U/L Total Protein 6.5 (6.3-8.2) g/dL Albumin 3.9 (3.5-5.0) g/dL Globulin 2.6 (1.7-4.1) g/dL Albumin/Globulin Ratio 1.5 (1.0-2.8) Lipase 22 L (23-300) U/L MDM Narrative Medical decision making narrative: Patient is having explosive diarrhea COVID for about 10 days. She is found to be extremely hypokalemic with potassium of 2.3 surprisingly her creatinine is not too low. However she is extremely weak and fatigued minimal in p.o. intake. Dr. Powell accepts patient Discharge Plan Departure Patient Disposition: Admitted as Observation Admit Date/Time: 03/11/22 16:26 Admit Provider: Abebe Powell
[2022-03-11 15:08] LABS: Potassium 2.3 mmol/L (3.4-5.1)
--- NOTE | 2022-03-11 17:45 | PM.HP.1 ---
History of Present Illness History of Present Illness Date Patient Seen: 03/11/22 Time Patient Seen: 17:45 Chief complaint: Not eating/drinking, N/V/D - COVID+ 11 days ago Narrative: Ivonne Haney is an 87yo F with PMH of parkinson's, hearing loss with cochlear implant, depression, hypothyroidism, and low BMI who presents with weakness, NV and diarrhea. Found to be COVID positive in ED. Patient is very hard of hearing so history mostly taken from grandson. He says over the past few days she has become increasingly weak and began having several loose stools as well as vomiting. He tested her at home with a home COVID test which was positive. Patient lives with her demented and family members have been taking turns staying with them for several months at a time to help out. She currently denies nausea and says she has an appetite. In the ED potassium level was 2.3. Patient denies CP, dyspnea, cough, fevers, sore throat or dizziness. Patient History Medical History Allergic rhinitis Chronic low back pain Chronic neck pain Closed left clavicular fracture (08/11/12) Dyskinesia of esophagus Fracture of left pelvis (05/10/13) GERD (gastroesophageal reflux disease) Graves' disease Hearing loss (~1970) History of polymyalgia rheumatica (07/2012) Hypothyroidism (1963) Loss of smell Parkinson's disease (08/2013) Pneumonia (1977) Pulmonary nodule Substernal chest pain (2001) Umbilical hernia Urinary incontinence Surgical History History of cardiac catheterization (06/17/07) History of cataract removal with insertion of prosthetic lens (2006) History of cochlear implant (1998) History of colonoscopy (08/20/10) History of colonoscopy (09/21/00) History of colonoscopy (03/09/06) History of dacryocystorhinostomy (2005) History of dental surgery (1988) History of esophagogastroduodenoscopy (EGD) (08/20/10) History of fundoplication (07/12/08) History of hand surgery (1999) History of intestinal surgery (09/07/12) History of toe surgery (~1979) History of toe surgery (1999) History of total right knee replacement (12/15/11) Status post hysterectomy (1983) Status post knee surgery (1987) Status post right rotator cuff repair (08/2005) Family & Social History Family History Father Diabetes mellitus Heart disease Hypertension Stroke Leukemia Mother Stroke Gallbladder disease Brother Prostate cancer Brother Colon cancer Sister Lung cancer Thyroid disease Tobacco & Substance use: Smoking Status Never smoker Meds Home Medications and Allergies Home Medications Medication Instructions Recorded Confirmed Type carbidopa ER 50 mg-levodopa 200 mg 1 tab PO BEDTIME #30 tabs 01/04/19 12/19/21 Rx tablet,extended release (Sinemet CR) gabapentin 400 mg capsule 400 mg PO BEDTIME 01/04/19 12/19/21 History naproxen sodium 220 mg capsule 220 mg PO BID-TID PRN pain #30 caps 01/04/19 12/19/21 Rx (Aleve) cyanocobalamin (vitamin B-12) 100 mcg (0.1 mL) IM QMONTH #1 mL 10/11/19 12/19/21 Rx 1,000 mcg/mL injection solution levothyroxine 75 mcg tablet 75 mcg PO QAM #90 tabs 10/10/21 12/19/21 Rx (Synthroid) trazodone 50 mg tablet 50 mg PO BEDTIME PRN insomnia #90 11/27/21 12/19/21 Rx tabs sertraline 25 mg tablet (Zoloft) 25 mg PO DAILY #90 tabs 12/12/21 12/19/21 Rx gabapentin 100 mg capsule 100 mg PO DAILY 12/19/21 12/19/21 History Allergies Allergy/AdvReac Type Severity Reaction Status Date / Time erythromycin base Allergy Unknown Unverified 12/19/21 13:56 [From ERYTHROCIN] levofloxacin [LEVOFLOXACIN] Allergy Unknown Unverified 12/19/21 13:56 simvastatin [SIMVASTATIN] Allergy Unknown Unverified 12/19/21 13:56 Review of Systems Review of Systems Narrative: All ROS negative unless otherwise stated in HPI. Exam Vital Signs (past 8 hours): - 03/11/22 13:48 03/11/22 14:06 03/11/22 14:06 Temperature 97.8 F Pulse Rate 67 60 Respiratory Rate 24 Blood Pressure 112/51 L 135/55 L Pulse Oximetry 97 98 Oxygen Delivery Method Room Air 03/11/22 14:30 03/11/22 14:30 03/11/22 15:00 Temperature Pulse Rate 51 L 55 L Respiratory Rate Blood Pressure 121/58 L Pulse Oximetry 97 Oxygen Delivery Method 03/11/22 15:01 03/11/22 15:01 03/11/22 15:30 Temperature Pulse Rate 58 L 59 L Respiratory Rate Blood Pressure 116/51 L Pulse Oximetry 94 97 Oxygen Delivery Method 03/11/22 15:31 03/11/22 15:31 03/11/22 16:00 Temperature Pulse Rate 59 L 60 Respiratory Rate Blood Pressure 116/53 L Pulse Oximetry 98 91 Oxygen Delivery Method 03/11/22 16:01 03/11/22 16:01 03/11/22 16:30 Temperature Pulse Rate 60 62 Respiratory Rate Blood Pressure 141/58 H Pulse Oximetry 93 96 Oxygen Delivery Method 03/11/22 16:31 03/11/22 16:31 03/11/22 17:00 Temperature Pulse Rate 62 57 L Respiratory Rate Blood Pressure 137/60 Pulse Oximetry 96 Oxygen Delivery Method 03/11/22 17:01 03/11/22 17:01 03/11/22 17:30 Temperature Pulse Rate 57 L 59 L Respiratory Rate Blood Pressure 128/68 Pulse Oximetry 97 96 Oxygen Delivery Method 03/11/22 17:31 Temperature Pulse Rate Respiratory Rate Blood Pressure 188/77 H Pulse Oximetry Oxygen Delivery Method Oxygen Delivery Method Room Air Narrative Exam Narrative: GEN: Very thin elderly female who is extremely hard of hearing HEENT: Mucous [place]bra[place] dry. PERRL PULM: CTA bilaterally CV: Regular rate and rhythm. No murmurs. EXT: No edema ABD: Soft and nontender NEURO: No focal deficits. SKIN: No rashes. Objective Labs Result Diagrams: 03/11/22 14:00 03/11/22 14:00 Labs: Laboratory Results - last 24 hr 03/11/22 03/11/22 14:00 14:00 WBC 5.1 RBC 3.68 L Hgb 12.1 Hct 36.1 MCV 97.9 MCH 32.9 MCHC 33.6 RDW 13.6 Plt Count 347 Neut % (Auto) 77.8 H Lymph % (Auto) 11.3 L [place] % (Auto) 10.2 Eos % (Auto) 0.3 L Baso % (Auto) 0.4 Neut # (Auto) 4000 Lymph # (Auto) 600 L [place] # (Auto) 500 Eos # (Auto) 0 Baso # (Auto) 0 Sodium 139 Potassium 2.3 L* Chloride 107 Carbon Dioxide 25 BUN 18 H Creatinine 0.84 Estimated GFR > 60 BUN/Creatinine Ratio 21.4 Glucose 100 Calcium 8.2 L Total Bilirubin 0.9 AST 32 ALT 6 Alkaline Phosphatase 75 Total Protein 6.5 Albumin 3.9 Globulin 2.6 Albumin/Globulin Ratio 1.5 Lipase 22 L Assessment & Plan Assessment & Plan narrative: # COVID positive -currently with no respiratory symptoms, but having diarrhea and weakness -isolation -monitor for need for supplemental O2 # acute diarrhea with NV -possibly due to COVID -will check stool PCR -antiemetics PRN # acute hypokalemia -K 2.3 in ED likely secondary to diarrhea and poor po intake -given 60mEq IV -check mag -replete and monitor # weakness -patient denies falls -PT eval # BMI 14 -Dietary consult #parkinsons, chronic -continue home sinemet # hypothyroidism, chronic -continue home synthroid # depression, chronic -continue home sertraline # insomnia, chronic -continue home trazodone Patient is DNR COVID positive DVT prophylaxis with SQ heparin Proxy is karen. Home med list reconciled. Time Spent With Patient Critical Care time: I spent a total of [] minutes of critical care time on this patient's care today; this time is exclusive of procedural time.
[2022-03-11] MEDS: POTASSIUM CHLORIDE IN WATER 10 MEQ/100 ML PIGGYBACK 100 MEQ IV ×2 (19:03→22:00)
[2022-03-11 21:34] LABS: COVID19 -Nasal RAPID POSITIVE (Negative)
[2022-03-11] MEDS: TRAZODONE 50 MG TABLET PO (23:35)
[2022-03-11] MEDS: CARBIDOPA-LEVODOPA ER 50/200 TABLET 1 EACH PO (23:35)
[2022-03-12] VITALS (7 sets, daily range): BP systolic 110–193; BP diastolic 42–94; PULSE 59–85; RESP 16–19; TEMP 36.2–37.5; O2SAT 93–98
[2022-03-12] MEDS: POTASSIUM CHLORIDE IN WATER 10 MEQ/100 ML PIGGYBACK 100 MEQ IV ×4 (00:45→05:46)
[2022-03-12] MEDS: LACTATED RINGERS 1,000 ML 100 ML IV ×2 (01:43→18:46)
[2022-03-12] MEDS: ACETAMINOPHEN 325 MG TABLET 650 MG PO (01:50)
[2022-03-12 02:09] LABS: Adenovirus F 40/41 Not Detected (Not Detect); Campylobacter Not Detected (Not Detect); Clostridium difficile toxin AB Not Detected (Not Detect); Cryptosporidium Not Detected (Not Detect); Cyclospora cayetanensis Not Detected (Not Detect); Entamoeba histolytica Not Detected (Not Detect); Enteroaggregative E.coli Not Detected (Not Detect); Enteropathogenic E.coli Not Detected (Not Detect); Enterotoxigenic E.coli It/st Not Detected (Not Detect); Giardia lamblia Not Detected (Not Detect); Plesiomonsa shigelloides Not Detected (Not Detect); Salmonella Not Detected (Not Detect); Shiga-like toxin-prod E.coli Not Detected (Not Detect); Shigella/Enteroinvasive E.coli Not Detected (Not Detect); Vibrio Not Detected (Not Detect); Vibrio cholerae Not Detected (Not Detect); Yersinia enterocolitica Not Detected (Not Detect)
[2022-03-12 02:10] LABS: Astrovirus Not Detected (Not Detect); Norovirus GI/GII Not Detected (Not Detect); Rotavirus A Not Detected (Not Detect); Sapovirus Not Detected (Not Detect)
--- NOTE | 2022-03-12 05:02 | PC.NURSE ---
Patient A/O x 4, sometimes forgetful of limitations. Potassium running through the night, slowed for patient comfort. Currently running at 90ml/hr, patient tolerating with no s/s of pain. Patient having watery stools, stool sample sent to lab, awaiting results. LR @ 100/hr.
[2022-03-12] MEDS: LEVOTHYROXINE 75 MCG TABLET PO (05:24)
[2022-03-12 05:36] LABS: Add Manual Diff / Slide Review NO; Basophils Absolute Auto 0 /uL (0-100); Basophils Percent Auto 0.3 % (0-2); Eosinophils Absolute Auto 0 /uL (0-450); Eosinophils Percent Auto 0.6 % (2-4); Hematocrit 31.8 % (36-46); Hemoglobin 11.1 g/dL (12.0-16.0); Lymphocytes Absolute Auto 700 /uL (1100-4500); Mean Corpuscular HGB Conc 34.9 % (30-36); Mean Corpuscular Hemoglobin 33.4 PG (26-34); Mean Corpuscular Volume 95.8 fL (80-100); Monocytes Absolute Auto 400 /uL (0-900); Monocytes Percent Auto 9.2 % (3-14); Neutrophils Absolute Auto 3500 /uL (1500-7000); Neutrophils Percent Auto 74.9 % (50-75); Platelet Count 311 X10^3/uL (150-400); Red Blood Cell Count 3.32 X10^6/uL (4.0-5.2); Red Cell Distribution Width 13.4 % (11.6-14.8); White Blood Cell Count 4.7 X10^3/uL (4.5-11.0)
[2022-03-12 05:54] LABS: Blood Urea Nitrogen 15 mg/dL (7-17); Calcium 7.6 mg/dL (8.4-10.2); Carbon Dioxide 21 mmol/L (22-32); Chloride 112 mmol/L (98-107); Estimated Glomerular Filt Rate > 60 mL/min (>60); Glucose 81 mg/dL (80-110); HEMOLYSIS < 15 (0-50); Sodium 141 mmol/L (137-145)
[2022-03-12 06:02] LABS: Potassium 2.5 mmol/L (3.4-5.1)
[2022-03-12 06:48] LABS: HEMOLYSIS < 15 (0-50)
[2022-03-12 06:51] LABS: Potassium 2.7 mmol/L (3.4-5.1)
[2022-03-12] MEDS: POTASSIUM CHLORIDE 20 MEQ TAB 40 MEQ PO ×4 (07:05→18:29)
[2022-03-12 08:12] LABS: Magnesium 1.7 mg/dL (1.6-2.3)
--- NOTE | 2022-03-12 08:28 | P.PN_ITS ---
Subjective Subjective Date Patient Seen: 03/12/22 Time Patient Seen: 15:00 Interval history: Patient states she feels better today. Less weak and only 2 bouts of diarrhea. Exam Vital Signs (past 8 hours): - 03/12/22 00:55 03/12/22 05:52 Temperature 98.7 F 97.1 F L Pulse Rate 85 61 Respiratory Rate 19 17 Blood Pressure 127/42 L 137/49 L Pulse Oximetry 98 97 Oxygen Delivery Method Room Air Narrative Exam Narrative: GEN: Very thin elderly female who is extremely hard of hearing HEENT: Mucous [place]bra[place] dry. PERRL PULM: CTA bilaterally CV: Regular rate and rhythm. No murmurs. EXT: No edema ABD: Soft and nontender NEURO: No focal deficits. SKIN: No rashes. Objective Labs Result Diagrams: 03/12/22 05:25 03/12/22 13:02 Labs: Laboratory Results - last 24 hr 03/11/22 03/11/22 03/11/22 14:00 14:00 21:16 WBC 5.1 RBC 3.68 L Hgb 12.1 Hct 36.1 MCV 97.9 MCH 32.9 MCHC 33.6 RDW 13.6 Plt Count 347 Neut % (Auto) 77.8 H Lymph % (Auto) 11.3 L [place] % (Auto) 10.2 Eos % (Auto) 0.3 L Baso % (Auto) 0.4 Neut # (Auto) 4000 Lymph # (Auto) 600 L [place] # (Auto) 500 Eos # (Auto) 0 Baso # (Auto) 0 Sodium 139 Potassium 2.3 L* Chloride 107 Carbon Dioxide 25 BUN 18 H Creatinine 0.84 Estimated GFR > 60 BUN/Creatinine Ratio 21.4 Glucose 100 Calcium 8.2 L Magnesium Total Bilirubin 0.9 AST 32 ALT 6 Alkaline Phosphatase 75 Total Protein 6.5 Albumin 3.9 Globulin 2.6 Albumin/Globulin Ratio 1.5 Lipase 22 L Stl C. cayetanensis PCR Stool Rotavirus (PCR) Stool Adenovirus (PCR) Stool Astrovirus (PCR) Stool Cryptosporidium PCR Stl E.coli Shiga Tox PCR St Sh/Enteroin Ecoli PCR Stool E coli O157 PCR Stl Enterotoxigenic E PCR Stool EPEC (PCR) Stl E. histolytica PCR Stool Giardia Lamblia PCR Stool Sapovirus (PCR) Stl P. shigelloides PCR St Y.enterocolitica PCR Stool Vibrio (PCR) Stl Vibrio cholerae PCR Stl Enteroaggr Ecoli PCR Stl Norovirus GI/GII PCR Campylobacter (PCR) C. difficile Tox (PCR) SARS-CoV-2 (PCR) Positive H Salmonella (PCR) 03/11/22 03/12/22 03/12/22 23:59 05:25 05:25 WBC 4.7 RBC 3.32 L Hgb 11.1 L Hct 31.8 L MCV 95.8 MCH 33.4 MCHC 34.9 RDW 13.4 Plt Count 311 Neut % (Auto) 74.9 Lymph % (Auto) 15.0 L [place] % (Auto) 9.2 Eos % (Auto) 0.6 L Baso % (Auto) 0.3 Neut # (Auto) 3500 Lymph # (Auto) 700 L [place] # (Auto) 400 Eos # (Auto) 0 Baso # (Auto) 0 Sodium Potassium Chloride Carbon Dioxide BUN Creatinine Estimated GFR BUN/Creatinine Ratio Glucose Calcium Magnesium 1.7 Total Bilirubin AST ALT Alkaline Phosphatase Total Protein Albumin Globulin Albumin/Globulin Ratio Lipase Stl C. cayetanensis PCR Not detected Stool Rotavirus (PCR) Not detected Stool Adenovirus (PCR) Not detected Stool Astrovirus (PCR) Not detected Stool Cryptosporidium PCR Not detected Stl E.coli Shiga Tox PCR Not detected St Sh/Enteroin Ecoli PCR Not detected Stool E coli O157 PCR Stl Enterotoxigenic E PCR Not detected Stool EPEC (PCR) Not detected Stl E. histolytica PCR Not detected Stool Giardia Lamblia PCR Not detected Stool Sapovirus (PCR) Not detected Stl P. shigelloides PCR Not detected St Y.enterocolitica PCR Not detected Stool Vibrio (PCR) Not detected Stl Vibrio cholerae PCR Not detected Stl Enteroaggr Ecoli PCR Not detected Stl Norovirus GI/GII PCR Not detected Campylobacter (PCR) Not detected C. difficile Tox (PCR) Not detected SARS-CoV-2 (PCR) Salmonella (PCR) Not detected 03/12/22 03/12/22 05:25 06:30 WBC RBC Hgb Hct MCV MCH MCHC RDW Plt Count Neut % (Auto) Lymph % (Auto) [place] % (Auto) Eos % (Auto) Baso % (Auto) Neut # (Auto) Lymph # (Auto) [place] # (Auto) Eos # (Auto) Baso # (Auto) Sodium 141 Potassium 2.5 L* 2.7 L* Chloride 112 H Carbon Dioxide 21 L BUN 15 Creatinine 0.60 Estimated GFR > 60 BUN/Creatinine Ratio 25.0 H Glucose 81 Calcium 7.6 L Magnesium Total Bilirubin AST ALT Alkaline Phosphatase Total Protein Albumin Globulin Albumin/Globulin Ratio Lipase Stl C. cayetanensis PCR Stool Rotavirus (PCR) Stool Adenovirus (PCR) Stool Astrovirus (PCR) Stool Cryptosporidium PCR Stl E.coli Shiga Tox PCR St Sh/Enteroin Ecoli PCR Stool E coli O157 PCR Stl Enterotoxigenic E PCR Stool EPEC (PCR) Stl E. histolytica PCR Stool Giardia Lamblia PCR Stool Sapovirus (PCR) Stl P. shigelloides PCR St Y.enterocolitica PCR Stool Vibrio (PCR) Stl Vibrio cholerae PCR Stl Enteroaggr Ecoli PCR Stl Norovirus GI/GII PCR Campylobacter (PCR) C. difficile Tox (PCR) SARS-CoV-2 (PCR) Salmonella (PCR) [facility] Medical History Allergic rhinitis Chronic low back pain Chronic neck pain Closed left clavicular fracture (08/11/12) Dyskinesia of esophagus Fracture of left pelvis (05/10/13) GERD (gastroesophageal reflux disease) Graves' disease Hearing loss (~1970) History of polymyalgia rheumatica (07/2012) Hypothyroidism (1963) Loss of smell Parkinson's disease (08/2013) Pneumonia (1977) Pulmonary nodule Substernal chest pain (2001) Umbilical hernia Urinary incontinence Surgical History History of cardiac catheterization (06/17/07) History of cataract removal with insertion of prosthetic lens (2006) History of cochlear implant (1998) History of colonoscopy (08/20/10) History of colonoscopy (09/21/00) History of colonoscopy (03/09/06) History of dacryocystorhinostomy (2005) History of dental surgery (1988) History of esophagogastroduodenoscopy (EGD) (08/20/10) History of fundoplication (07/12/08) History of hand surgery (1999) History of intestinal surgery (09/07/12) History of toe surgery (~1979) History of toe surgery (1999) History of total right knee replacement (12/15/11) Status post hysterectomy (1983) Status post knee surgery (1987) Status post right rotator cuff repair (08/2005) Family History Father Diabetes mellitus Heart disease Hypertension Stroke Leukemia Mother Stroke Gallbladder disease Brother Prostate cancer Brother Colon cancer Sister Lung cancer Thyroid disease Social History household members: spouse and family Smoking Status: Never smoker Assessment & Plan Assessment & Plan narrative: # COVID positive -currently with no respiratory symptoms, but having diarrhea and weakness -isolation -monitor for need for supplemental O2 # acute diarrhea with NV -possibly due to COVID -stool PCR negative -antiemetics PRN # acute hypokalemia -K 2.3 in ED likely secondary to diarrhea and poor po intake -repleting with po and improved to 3.1 -mag 1.7, 2g given -replete and monitor # weakness -patient denies falls -PT eval recommending home health on discharge # BMI 14 -Dietary consult recommending ensures and speech eval -speech consult eval and rec mech soft diet #parkinsons, chronic -continue home sinemet # hypothyroidism, chronic -continue home synthroid # depression, chronic -continue home sertraline # insomnia, chronic -continue home trazodone Patient is DNR COVID positive DVT prophylaxis with SQ heparin Proxy is grandson. Home med list reconciled. Dispo: Likely d/c on 03/13 with home health. Time Spent With Patient Critical Care time: I spent a total of [] minutes of critical care time on this patient's care t leanne; this time is exclusive of procedural time.
[2022-03-12] MEDS: HEPARIN 5,000 UNIT/ML VIAL 5000 UNIT SUBCUT ×2 (09:38→21:09)
[2022-03-12] MEDS: SERTRALINE 50 MG TABLET 25 MG PO (09:38)
[2022-03-12] MEDS: MAGNESIUM SULFATE 2 GM/50 ML PIGGYBACK IV (09:42)
[2022-03-12 10:47] LABS: BUN Creatinine Ratio 19.4 (6-22); Blood Urea Nitrogen 13 mg/dL (7-17); Calcium 7.9 mg/dL (8.4-10.2); Carbon Dioxide 24 mmol/L (22-32); Chloride 111 mmol/L (98-107); Estimated Glomerular Filt Rate > 60 mL/min (>60); Glucose 112 mg/dL (80-110); HEMOLYSIS < 15 (0-50); Potassium 2.8 mmol/L (3.4-5.1); Sodium 140 mmol/L (137-145)
--- NOTE | 2022-03-12 11:06 | DIET.CONS ---
Dietary Consultation Note Admission Date: 03/11/2022 16:26 Assessment: 87y F admitted for N/V/D found to be covid positive. RD did not enter patient room r/t covid + status, information gleaned from chart review. Pt with hx Parkinson's and dyskinesia of esophagus c ongoing issues of dry mouth and diarrhea for which she has seen her PCP about with reccs for OTC mouth moisturizers, immodium therapy. Pt had MBSS but report from SALES LED[employer] CLERK not in file. Pt has extensive weight hx in chart showing pt stable at 50kg until 1y ago for which she started losing significant weight, 20% in 1y (severe) with severe BMI of 14.8. Pts low body weight puts her at high risk of morbidity and mortality with current covid+ status, ongoing N/V/D. Pts POs for breakfast this AM 75%. Ht: 165.1 cm Wt: 40.37 kg (-20% in 1y, severe) BMI: 14.8 (severe) UBW: 50kg Last BM: 03/11/22 (03/11/22 17:36) MNA: 7 Johan Score: 19 Diet: 03/11/22 Dinner General (Regular) Diet Diet Modifications: Nutrition Percent Meal Consumed 75% 03/12/22 09:45 Labs: RBC 3.32 X10^6/uL (4.0-5.2) L 03/12/22 05:25 Hgb 11.1 g/dL (12.0-16.0) L 03/12/22 05:25 Hct 31.8 % (36-46) L 03/12/22 05:25 Creatinine 0.67 mg/dL (0.52-1.04) 03/12/22 10:25 Nutrition Diagnosis: Severe chronic protein calorie malnutrition r/t disease related malnutrition without inflammation and acute GI sx aeb 20% unintentional weight loss in 1y (severe), BMI 14.8 (severe), pt with chronic dry mouth and diarrhea, pt with acute covid infection with N/V/D and fatigue. Interventions: 1. Sending ONS Ensure Enlive bid to support hydration and nutrition status with N/V/D sx providing 50% kcal and 70% protein needs in addition to meal trays. 2. Recc speech therapy consult related to dry mouth and hx MBSS in this patient on general diet. 3. Daily weights please EER: 1400kcals (35kcal/kg), 60g PRO (1.5g/kg per PCM) Monitoring/Evaluations: POs, Electronically Signed by: Shala Ramirez 03/12/22 11:06 Clinical Dietitian [address] [address]
--- NOTE | 2022-03-12 12:05 | SLP.IPNOTE ---
The pt's swallow safety was screened during Nsg administration of medication with water and with applesauce and during pt consumption of thin liquid and dry cracker. No overt s/sx of aspiration were observed. The pt exhibited difficulty with bolus formation and a/p propulsion of dry cracker. She reported mild difficulty swallowing large pills with water and benefited from pills split in half and taken with a carrier. Recommend downgrading diet to Mechanical Soft texture with added moisture, meds in carrier. This was communicated to the pt's nurse and to Shala Ramirez Clinical Dietitian. The pt was a poor historian and initially could not remember if she had swallow problems or not. Upon swallowing a large pill with water, she stated, That helps me remember that I sometimes have trouble swallowing. Recommend Nsg monitor the pt's swallow safety with downgraded texture and refer to METAL TILE LATHER if swallow safety appears compromised.
--- NOTE | 2022-03-12 12:16 | PT.IIE ---
Current Diagnoses Encounter for sterilization (03/12/22) Surgical History (Last Reviewed 03/11/22 @ 18:15 by Cait Murcia DO) History of cardiac catheterization (06/17/07) History of cataract removal with insertion of prosthetic lens (2006) History of cochlear implant (1998) History of colonoscopy (08/20/10) History of colonoscopy (09/21/00) History of colonoscopy (03/09/06) History of dacryocystorhinostomy (2005) History of dental surgery (1988) History of esophagogastroduodenoscopy (EGD) (08/20/10) History of fundoplication (07/12/08) History of hand surgery (1999) History of intestinal surgery (09/07/12) History of toe surgery (~1979) History of toe surgery (1999) History of total right knee replacement (12/15/11) Status post hysterectomy (1983) Status post knee surgery (1987) Status post right rotator cuff repair (08/2005) Medical History (Last Reviewed 03/11/22 @ 18:15 by Cait Murcia DO) Allergic rhinitis Chronic low back pain Chronic neck pain Closed left clavicular fracture (08/11/12) Dyskinesia of esophagus Fracture of left pelvis (05/10/13) GERD (gastroesophageal reflux disease) Graves' disease Hearing loss (~1969) History of polymyalgia rheumatica (07/2012) Hypothyroidism (1963) Loss of smell Parkinson's disease (08/2013) Pneumonia (1977) Pulmonary nodule Substernal chest pain (2001) Umbilical hernia Urinary incontinence Physical Therapy Inpatient Evaluation/Re-Eval M1 PT/OT-IP Prior Functional Status Start: 03/12/22 14:17 Freq: NEEDED Status: Active Protocol: Document 03/12/22 12:16 AB (Rec: 03/12/22 14:49 AB [id number]) Medical Review Prior Functional Status Medical History Reviewed Yes Communication able to make needs known; [place] with R cochlear implant Mobility and Gait pt stated that she is modified independent with all mobilities and ambulation without AD but occasionally uses her tripod cane Social History Household Members spouse,family Living Arrangements House Number of Floors (Floors) One Floor Number of Stairs To Enter/Railing? 2 steps with R rail to enter Home Environment Standard Height Toilet,Walk in Shower Home Equipment Four Wheel Walker,Hand Held Shower,Grab Bars In Shower Additional Social History Comment has a tripod cane pt lives with spouse but spouse will not be able to assist pt; per EMR spouse has dementia pt stated amongst her children they rotate so somebody can be with her and her spouse . has visiting nurses that provides care to her spouse mondays to fridays for 4 hours . pt has an adjustable bed ; no rails M2 PT-IP Current Condition Start: 03/12/22 14:17 Freq: NEEDED Status: Active Protocol: Document 03/12/22 12:16 AB (Rec: 03/12/22 14:49 AB [id number]) Physical Therapy Current Condition Current Condition Evaluation Date 03/12/22 Treatment Diagnosis Covid; Diarrhea; difficulty in walking Onset Date 03/11/22 M3 PT-IP Subjective Start: 03/12/22 14:17 Freq: NEEDED Status: Active Protocol: Document 03/12/22 12:16 AB (Rec: 03/12/22 14:49 AB [email or web address]) Subjective Physical Therapy Visit Type Type Initial Evaluation Visit Start Time 12:16 Visit Stop Time 13:05 Total Visit Minutes 49 Number of RIP AND GROOVE MACHINE OPERATOR Visits 0 Physical Therapy Visit Comments Patient Comments agreeable to do PT M4 PT-IP Mobility and Gait Start: 03/12/22 14:17 Freq: NEEDED Status: Active Protocol: Document 03/12/22 12:16 AB (Rec: 03/12/22 14:49 AB [email or web address]) PT-Bed Mobility Assessment Supine to Sit Supine to Sit Standby Assistance,Head of Bed Elevated PT-Transfer Assessment Sit to and From Stand Sit to and from Stand Minimal Assistance,1 Person Assistance,Use of Upper Extremities Equipment Transfer Assistive Device Gait Belt,Front Wheeled Walker Orthotic/Prosthetic Devices or Brace: No Transfers Transfer Destination Chair Transfer Technique ambulated Transfer Ability Level of Assist Minimal Assistance,1 Person Assistance,Use of Upper Extremities Comments Mobility Comments pt completed supine to sit SBA with HOB elevated. pt has an adjustable bed at home. pt able to sit on EOB SBA to CGA. stooped posture. O2 at at RA 93%. completed sit to stand min A and ambulated in room 20 ft using tripod cane min A and cues. stooped posture, decrease MEGAN with RLE tends to croos midline. cued for upright posture and steady gait. assessed ambulation using FWW and completed with CGA 20 ft with steadier gait but continues to have narrow MEGAN and stooped posture. pt agreed to sit up on the chair. positioned on the chair. set up for lunch. call light and table placed within reach. educated pt on safety and use of FWW at this time for transfers and ambulation and pt agreed. Gait Assessment Gait Gait Assistance Required: Contact Guard Assist,Minimum Assistance Distance (Feet) 20 Able to Maintain Weight Bearing Status Yes During Gait Assistive Devices Assistive Device Gait Belt,Tripod Cane/Hurry Cane,Front Wheeled Walker Orthotic/Prosthetic Devices or Brace: No Gait Deviations General Gait Pattern Antalgic,Decreased Stride Length,Decreased Feet Clearance,Flexed Trunk,Step-to Gait Factors Limiting Gait Function Factors Limiting Gait Function Decreased Activity Tolerance, Decreased Strength,Difficulty Following Directions,Poor Balance,Poor Safety Awareness, Respiratory Distress Comments Gait Comments pls refer to mobility section for details PT-Balance Assessment Sitting Balance and Reactions Static Sitting Balance Ability Good Dynamic Sitting Balance Ability Fair Standing Balance and Reactions Static Standing Balance Ability Fair Dynamic Standing Balance Ability Fair Device Used FWW M5 PT-IP Objective Assessments Start: 03/12/22 14:17 Freq: NEEDED Status: Active Protocol: Document 03/12/22 12:16 AB (Rec: 03/12/22 14:49 AB [email or web address]) Orientation Orientation/Cognition Level of Alertness Alert Orientation Name,Place,Situation Language Function Ability Hard of Hearing Safety Awareness Decreased Safety Awareness Memory Description Short Term Impaired Gross Range of Motion Lower Extremity ROM Assessment Within Functional Limits Strength Lower Extremity Strength Assessment Bilaterally Impaired Hip 3+/5 Knee 3+/5 Sensation Assessment Sensation Gross Sensation WNL Muscle Tone Muscle Tone WNL Yes M6 PT-IP Treatment Start: 03/12/22 14:17 Freq: NEEDED Status: Active Protocol: Document 03/12/22 12:16 AB (Rec: 03/12/22 14:49 AB [email or web address]) Physical Therapy Treatment Education Education Provided Safety M7 PT-IP Assessment and Plan Start: 03/12/22 14:17 Freq: NEEDED Status: Active Protocol: Document 03/12/22 12:16 AB (Rec: 03/12/22 14:49 AB [email or web address]) PT Summary Assessment and Plan Potential Rehabilitation Potential Fair Status of Condition at Evaluation Evolving Summary Impairments Pain,ROM,Strength,Balance, Coordination,Sensation,Tone, Cognition,Bed Mobility, Transfers,Gait,Activity Tolerance Assessment Summary pt requiring min A with mobility using FWW at this time. pt with decrease activity tolerance affecting mobility independence. d/c plan depending on progress. pt stated that her children will assist her. pt needs 24/7 assist at this time and will benefit from HHPT. Goals Bed Mobility Goal Independent Transfer Goal Independent,Front Wheeled Walker,Four Wheeled Walker Gait Goal Independent,Front Wheel Walker ,Four Wheel Walker Gait Distance 200 Other Goals ambulation without AD/tripod cane SBA 200 ft 2 steps R rail SBA Days to Meet Goals 10 Frequency of Treatment Frequency Of Treatment Once a Day Treatment Plan Physical Therapy Treatment Plan Bed Mobility Training,Transfer Training,Gait Training, Therapeutic Exercise,Balance Retraining,Discharge Planning, Hot or Cold Pack,Neuromuscular Re-ed,Coordination Retraining Recommendations To Nursing Amount of Assist Needed 1 Person Assist Discharge Recommendations PT Discharge Recommendations Home with 24/7 Assist Available,Home Health Equipment Needed for Home Before FWW if not safe with 4WW Discharge Transportation Needs at Discharge Private Vehicle
[2022-03-12 13:23] LABS: BUN Creatinine Ratio 18.1 (6-22); Blood Urea Nitrogen 13 mg/dL (7-17); Carbon Dioxide 24 mmol/L (22-32); Chloride 109 mmol/L (98-107); Estimated Glomerular Filt Rate > 60 mL/min (>60); Glucose 90 mg/dL (80-110); HEMOLYSIS < 15 (0-50); Potassium 3.1 mmol/L (3.4-5.1); Sodium 139 mmol/L (137-145)
--- NOTE | 2022-03-12 16:22 | CM.DANOTE ---
Initial discharge planning note: 87 year old female admitted 03/11/22 admitted with N/V diarrhea, low K+, poor intake. Payer: [employer] PCP Fabricio Sinclair Unable to meet with patient as she is Covid+ and unable to hear my voice on phone, very ANIAK (cochlear implant). Was able to speak with patient's permission to her grandjosseline De Oliveira (and his spouse Nhi) who is living with patient and her spouse who has dementia, cooks and helps out as needed. Family, son and 2 daughters help out and are involved as well. Visiting [place] visit 5 days a week for 4 hours to help both patient and her spouse. Patient is mostly independent, does not drive. P: Follow for needs, speak with nursing for updates. Almost impossible to speak with patient due to ANIAK (over phone). She has given permission for us to call family for questions. BRODY Discharge Planning/Care Management CM Discharge Assessment Start: 03/12/22 16:15 Freq: Status: Active Protocol: Document 03/12/22 16:15 (Rec: 03/12/22 16:22 [id number]) Discharge Planning Assessment Advance Directives? Yes: POLST Advance Directives on File No History Provided By Patient Prior Living Arrangements House Household Members spouse,family Comment grandjosseline De Oliveira and his spouse Nhi Type of transporation used prior to Relies on Others admit Needs Assistance With Home Chores / Shopping Caregiver for Another No: she directs spouse DME Already Rented / Owned FWW / Walker,Cane Barriers to Discharge No Discharge Plan Home Additional Comment may need Home Health Review Status In Process Next Review Type Continued Stay Review
[2022-03-12] MEDS: LOPERAMIDE 2 MG CAPSULE PO ×2 (18:45→21:15)
[2022-03-12] MEDS: ONDANSETRON 4 MG/2 ML INJ IV (18:45)
[2022-03-12] MEDS: CARBIDOPA-LEVODOPA ER 50/200 TABLET 1 EACH PO (21:09)
[2022-03-12] MEDS: TRAZODONE 50 MG TABLET PO (21:09)
[2022-03-12] MEDS: SODIUM CHLORIDE 0.9% FLUSH 10 ML IV (21:20)
[2022-03-13 04:27] VITALS: BP 153/53; PULSE 63; RESP 12; TEMP 36.6; O2SAT 94
[2022-03-13] MEDS: LACTATED RINGERS 1,000 ML 100 ML IV (05:07)
[2022-03-13] MEDS: LEVOTHYROXINE 75 MCG TABLET PO (05:07)
[2022-03-13 05:24] LABS: Add Manual Diff / Slide Review NO; Basophils Absolute Auto 0 /uL (0-100); Basophils Percent Auto 0.6 % (0-2); Eosinophils Absolute Auto 0 /uL (0-450); Eosinophils Percent Auto 0.7 % (2-4); Hemoglobin 11.2 g/dL (12.0-16.0); Lymphocytes Absolute Auto 1200 /uL (1100-4500); Lymphocytes Percent Auto 23.1 % (25-40); Mean Corpuscular HGB Conc 33.9 % (30-36); Mean Corpuscular Hemoglobin 33.1 PG (26-34); Mean Corpuscular Volume 97.4 fL (80-100); Monocytes Absolute Auto 600 /uL (0-900); Monocytes Percent Auto 11.3 % (3-14); Neutrophils Absolute Auto 3300 /uL (1500-7000); Neutrophils Percent Auto 64.3 % (50-75); Platelet Count 325 X10^3/uL (150-400); Red Blood Cell Count 3.38 X10^6/uL (4.0-5.2); White Blood Cell Count 5.1 X10^3/uL (4.5-11.0)
[2022-03-13 05:32] LABS: BUN Creatinine Ratio 21.4 (6-22); Blood Urea Nitrogen 12 mg/dL (7-17); Calcium 7.6 mg/dL (8.4-10.2); Carbon Dioxide 22 mmol/L (22-32); Chloride 115 mmol/L (98-107); Estimated Glomerular Filt Rate > 60 mL/min (>60); Glucose 74 mg/dL (80-110); HEMOLYSIS < 15 (0-50); Potassium 2.8 mmol/L (3.4-5.1); Sodium 141 mmol/L (137-145)
--- NOTE | 2022-03-13 08:00 | P.DS_ITS ---
History of Present Illness History of Present Illness Date Patient Seen: 03/13/22 Time Patient Seen: 12:00 Chief complaint: Not eating/drinking, N/V/D - COVID+ 11 days ago Narrative: Ivonne Haney is an 87yo F with PMH of parkinson's, hearing loss with cochlear implant, depression, hypothyroidism, and low BMI who presents with weakness, NV and diarrhea. Found to be COVID positive in ED. Patient is very hard of hearing so history mostly taken from grandson. He says over the past few days she has become increasingly weak and began having several loose stools as well as vomiting. He tested her at home with a home COVID test which was positive. Patient lives with her demented and family members have been taking turns staying with them for several months at a time to help out. She currently denies nausea and says she has an appetite. In the ED potassium level was 2.3. Patient denies CP, dyspnea, cough, fevers, sore throat or dizziness. Discharge Providers Provider Date of admission: 03/12/22 10:05 Discharge Date: 03/13/22 Primary care physician: Fabricio Sinclair MD Consults: 03/11/22 17:44 Consult to Physical Therapy Evaluate & Treat Comment: Physician Instructions: Evaluate and Treat 03/12/22 08:29 Consult to Dietitian, Adult Routine Comment: Reason For Exam: BMI 14.8 Discharge provider: Abebe Powell DO Summary Hospital Course Discharge Diagnosis: # COVID positive -currently with no respiratory symptoms, but having diarrhea and weakness -isolation -monitor for need for supplemental O2 # acute diarrhea with NV, improved -possibly due to COVID -stool PCR negative -antiemetics PRN # acute hypokalemia -K 2.3 in ED likely secondary to diarrhea and poor po intake -repleting with po and improved to 3.1 -mag 1.7, 2g given -replete and monitor -sent home with daily potassium supplement # weakness -patient denies falls -PT eval recommending home health on discharge but patient denied # Severe protein calorie malnutrition with BMI 14 -secondary to poor po intake from swallowing difficulty -Dietary consulted and recommending ensures and speech eval -speech consult eval and rec mech soft diet -should get referral for outpatient speech from PCP #parkinsons, chronic -continue home sinemet # hypothyroidism, chronic -continue home synthroid # depression, chronic -continue home sertraline # insomnia, chronic -continue home trazodone Hospital Course: Patient admitted for weakness, diarrhea and hypokalemia from [facility]. Stool PCR negative. She improved but required huge amounts of potassium supplementation. Was discharged home on BID potassium 20mEq. Dice Maker evaluated patient as well as speech and recommended minched and moist diet and relayed this to family as patient has had trouble eating certain foods so has been losing weight. She should have outpatient referral by PCP to speech therapy for ongoing therapy. Sent home with imodium for diarrhea. Exam Vital Signs (past 8 hours): - 03/13/22 04:27 Temperature 97.9 F Pulse Rate 63 Respiratory Rate 12 Blood Pressure 153/53 H Pulse Oximetry 94 Oxygen Flow Rate 0 Oxygen Delivery Method Room Air Oxygen Flow Rate 0 Narrative Exam Narrative: GEN: Very thin elderly female who is extremely hard of hearing HEENT: Mucous membraines dry. PERRL PULM: CTA bilaterally CV: Regular rate and rhythm. No murmurs. EXT: No edema ABD: Soft and nontender NEURO: No focal deficits. SKIN: No rashes. Objective Labs Result Diagrams: 03/13/22 05:05 03/13/22 05:05 Labs: Laboratory Results - last 24 hr 03/12/22 03/12/22 03/12/22 05:25 10:25 13:02 WBC RBC Hgb Hct MCV MCH MCHC RDW Plt Count Neut % (Auto) Lymph % (Auto) Desha % (Auto) Eos % (Auto) Baso % (Auto) Neut # (Auto) Lymph # (Auto) Desha # (Auto) Eos # (Auto) Baso # (Auto) Sodium 140 139 Potassium 2.8 L 3.1 L Chloride 111 H 109 H Carbon Dioxide 24 24 BUN 13 13 Creatinine 0.67 0.72 Estimated GFR > 60 > 60 BUN/Creatinine Ratio 19.4 18.1 Glucose 112 H 90 Calcium 7.9 L 8.0 L Magnesium 1.7 03/13/22 03/13/22 03/13/22 05:05 05:05 05:05 WBC 5.1 RBC 3.38 L Hgb 11.2 L Hct 33.0 L MCV 97.4 MCH 33.1 MCHC 33.9 RDW 14.0 Plt Count 325 Neut % (Auto) 64.3 Lymph % (Auto) 23.1 L Desha % (Auto) 11.3 Eos % (Auto) 0.7 L Baso % (Auto) 0.6 Neut # (Auto) 3300 Lymph # (Auto) 1200 Desha # (Auto) 600 Eos # (Auto) 0 Baso # (Auto) 0 Sodium 141 Potassium 2.8 L Chloride 115 H Carbon Dioxide 22 BUN 12 Creatinine 0.56 Estimated GFR > 60 BUN/Creatinine Ratio 21.4 Glucose 74 L Calcium 7.6 L Magnesium 2.0 PFSH Medical History Allergic rhinitis Chronic low back pain Chronic neck pain Closed left clavicular fracture (08/11/12) Dyskinesia of esophagus Fracture of left pelvis (05/10/13) GERD (gastroesophageal reflux disease) Graves' disease Hearing loss (~1969) History of polymyalgia rheumatica (07/2012) Hypothyroidism (1963) Loss of smell Parkinson's disease (08/2013) Pneumonia (1977) Pulmonary nodule Substernal chest pain (2001) Umbilical hernia Urinary incontinence Surgical History History of cardiac catheterization (06/17/07) History of cataract removal with insertion of prosthetic lens (2006) History of cochlear implant (1998) History of colonoscopy (08/20/10) History of colonoscopy (09/21/00) History of colonoscopy (03/09/06) History of dacryocystorhinostomy (2005) History of dental surgery (1988) History of esophagogastroduodenoscopy (EGD) (08/20/10) History of fundoplication (07/12/08) History of hand surgery (1999) History of intestinal surgery (09/07/12) History of toe surgery (~1979) History of toe surgery (1999) History of total right knee replacement (12/15/11) Status post hysterectomy (1983) Status post knee surgery (1987) Status post right rotator cuff repair (08/2005) Family History Father Diabetes mellitus Heart disease Hypertension Stroke Leukemia Mother Stroke Gallbladder disease Brother Prostate cancer Brother Colon cancer Sister Lung cancer Thyroid disease Social History household members: spouse and family Smoking Status: Never smoker Discharge Plan Discharge Plan Patient Disposition: Home Provider Discharge Comment: You were admitted for diarrhea and weakness I believe related to COVID. Your stool was tested and did not have any evidence of infection. I gave you imodium to help the diarrhea while in the hospital and am sending you home with a prescription for some. It is also over the counter which you can merchandise pickup/receiving associate at any grocery store. You met with speech therapy who recommended a softer diet called minced and moist. You should have your PCP r efer you back to outpatient speech therapy as well for further management. You also had very low potassium from the diarrhea so I'm sending you home on a daily potassium supplement. Discharge orders & Medications Prescriptions: New loperamide [Imodium A-D] 2 mg capsule 2 mg PO QID PRN (Reason: diarrhea) Qty: 30 0RF potassium chloride 20 mEq tablet extended release 20 meq PO BID Qty: 60 0RF Continued levothyroxine [Synthroid] 75 mcg tablet 75 mcg PO QAM Qty: 90 3RF sertraline [Zoloft] 25 mg tablet 25 mg PO DAILY Qty: 90 3RF trazodone 50 mg tablet 50 mg PO BEDTIME PRN (Reason: insomnia) Qty: 90 1RF gabapentin 400 mg capsule 400 mg PO BEDTIME carbidopa-levodopa [Sinemet CR] 50-200 mg tablet extended release 1 tab PO BEDTIME Qty: 30 0RF naproxen sodium [Aleve] 220 mg capsule 220 mg PO BID-TID PRN (Reason: pain) Qty: 30 0RF cyanocobalamin (vitamin B-12) 1,000 mcg/mL solution 100 mcg IM QMONTH Qty: 1 11RF Rx Instructions: patient reports this changed to an oral dose, unable to state dose. gabapentin 100 mg capsule 100 mg PO QAM Follow up/Referrals: Fabricio Sinclair MD [Primary Care Provider] - Diet/Activity/Treatments Diet: Diet as Tolerated Diet comment: Minced and moist texture. Please refer to outpatient speech therapy. Discharge Data Primary Care Provider: Fabricio Sinclair
[2022-03-13] MEDS: SERTRALINE 50 MG TABLET 25 MG PO (10:14)
[2022-03-13] MEDS: SODIUM CHLORIDE 0.9% FLUSH 10 ML IV (10:14)
[2022-03-13] MEDS: HEPARIN 5,000 UNIT/ML VIAL 5000 UNIT SUBCUT (10:14)
--- NOTE | 2022-03-13 10:28 | DIET.CONS2 ---
Dietary Inpatient Consultation Note Admission Date: 03/12/2022 10:05 Per screen by AUTOMOBILE MECHANIC MOTOR, pt placed on Dysphagia Mechanical Soft- moist diet r/t dry mouth. Continuing ONS as pts POs 10-75%. Diet: 03/12/22 Dinner Dysphagia Diet Diet Modifications: moist foods please, ensure enlive bid Liquid consistency: Normal/Thin Food texture: Dysphagia Mechanical Soft Nutrition Percent Meal Consumed 10% 03/12/22 18:00 Percent Meal Consumed 25% 03/12/22 13:52 Percent Meal Consumed 75% 03/12/22 09:45 Electronically Signed by: Shala Ramirez 03/13/22 10:28 Clinical Dietitian [address] [address]
[2022-03-13 12:00] VITALS: BP 146/48; PULSE 65; RESP 20; TEMP 37.3; O2SAT 96
--- NOTE | 2022-03-13 13:04 | DIET.CONS2 ---
Dietary Inpatient Consultation Note Admission Date: 03/12/2022 10:05 Spoke with pts daughter regarding home PO intake. Family agrees, pts diet texture probably inappropriate to meet nutrition needs related to food getting stuck in throat. Pt seems to do well with soft scrambled eggs, soft cooked rice, soft moist foods. Educated pts family on Minced and Moist texture for pt. Pts grandson who lives with her is centrifugal casting machine tender and will work on supportive diet. Family declines appetite stimulant at this time. Family requests outpatient Speech therapy visits to help as she had this referral in the past which was discharged for unknown reason. Diet: 03/12/22 Dinner Dysphagia Diet Diet Modifications: moist foods please, ensure enlive bid Liquid consistency: Normal/Thin Food texture: Dysphagia Mechanical Soft Nutrition Diagnosis: Severe chronic protein calorie malnutrition r/t disease related malnutrition without inflammation and acute GI sx aeb 20% unintentional weight loss in 1y (severe), BMI 14.8 (severe), pt with chronic dry mouth and diarrhea, pt with acute covid infection with N/V/D and fatigue. Interventions: 1. Sending ONS Ensure Enlive bid to support hydration and nutrition status with N/V/D sx providing 50% kcal and 70% protein needs in addition to meal trays. 2. Recc Minced and Moist diet at home with referral to speech therapy per family wishes Nutrition Percent Meal Consumed 25% 03/13/22 12:29 Percent Meal Consumed 10% 03/12/22 18:00 Percent Meal Consumed 25% 03/12/22 13:52 Percent Meal Consumed 75% 03/12/22 09:45 Electronically Signed by: Shala Ramirez 03/13/22 13:04 Clinical Dietitian [address] [id number]
--- NOTE | 2022-03-13 13:11 | PT-IP ANOTE ---
Spoke w/ pt at 12:53 PM, pt feels ready to go home and states she has FWW for home use, caregivers, family support including grand daughter who is an occupational therapist.
--- NOTE | 2022-03-13 13:48 | CM.DPC ---
DCP Discharge Home Per MD, pt is medically stable to d/c home today with family assist and no identified barriers to discharge. Per Rfp Writer, educated family members on nutritional and textured foods best to increase pt's nutritional intake and improve her malnutrition and family very appreciative and agreeable. Per GRADUATE ASSISTANT ATHLETIC TRAINER, pt declines further PT and HH as she states she feels confident with her family assist and granddtr being an OT and grandson a chef de cuisine and declines further needs at this time. Plan: Patient to d/c home today via family POV and outpt f/u after discharge. No further SW needs at this time. JOSHUA Hill
[2022-03-13] MEDS: POTASSIUM CHLORIDE 20 MEQ TAB 40 MEQ PO (14:20)
== END 2022-03-13 13:00 | disposition home or self-care (01) | DRG 640 ==
LOC: ED 14:34 → AC 16:28
PROVIDERS: Nurse Practitioner Family; Admitting Provider Student in an Organized Health Care Education/Training Program; Emergency Provider Emergency Medicine; Family Provider Student in an Organized Health Care Education/Training Program; PCP Student in an Organized Health Care Education/Training Program; Referring Provider Emergency Medicine; Visit Provider Student in an Organized Health Care Education/Training Program
DX: E87.6 Hypokalemia (principal); U07.1 COVID-19; E43 Unspecified severe protein-calorie malnutrition; Z68.1 Body mass index [BMI] 19.9 or less, adult; R19.7 Diarrhea, unspecified; R11.2 Nausea with vomiting, unspecified; G20 Parkinson's disease; E03.9 Hypothyroidism, unspecified; F32.9 Major depressive disorder, single episode, unspecified; G47.00 Insomnia, unspecified
CPT/HCPCS: 36415; 80048; 80053; 83690; 83735; 84132; 85025; 87507; 87635; 97162; 97530; 99283; 99284; C9803; G0378; J1644; J2405; J3475

== ENCOUNTER → 2022-03-24 08:18 | Outpatient (CLI) | payer OTHER, SELFPAY ==
[2022-03-11 17:36] VITALS: BMI 14.8
[2022-03-24 09:17] LABS: BUN Creatinine Ratio 23.2 (6-22); Blood Urea Nitrogen 16 mg/dL (7-17); Calcium 8.1 mg/dL (8.4-10.2); Carbon Dioxide 32 mmol/L (22-32); Chloride 104 mmol/L (98-107); Estimated Glomerular Filt Rate > 60 mL/min (>60); Glucose 89 mg/dL (80-110); HEMOLYSIS < 15 (0-50); Magnesium 1.7 mg/dL (1.6-2.3); Sodium 139 mmol/L (137-145)
== END ==
PROVIDERS: Family Provider Student in an Organized Health Care Education/Training Program; PCP Student in an Organized Health Care Education/Training Program; Referring Provider Student in an Organized Health Care Education/Training Program; Visit Provider Student in an Organized Health Care Education/Training Program
DX: E83.42 Hypomagnesemia (principal); E87.6 Hypokalemia; R19.7 Diarrhea, unspecified
CPT/HCPCS: 36415; 80048; 83735

== ENCOUNTER → 2022-04-09 10:58 | Outpatient (CLI) | payer OTHER, SELFPAY ==
[2022-03-11 17:36] VITALS: BMI 14.8
--- NOTE | 2022-04-09 11:03 | DIET.CONS ---
Dietary Consultation Note Assessment: 87y F attending RD visit with grandson for protein calorie malnutrition, hypokalemia and esophageal dyskinesia after hospitalization for covid PNA. Wt: 92# (+4# since admissions) BMI: 15.5 UBW: 120# Pt with pmhx Parkinson's Disease with associated weight loss and esophageal dyskinesia. Pt reported difficulty with solid textures sabrina dry rice and pills getting stuck in her throat. Speech therapy recommended Minced and Moist texture. Pt lives with granddaughter and her who is pastry chef and cooks for pt. Ivonne is RUBY but reports loving the care they provide her and the delicious meals. Pts granddaughter making desserts for pt. Pt dislikes ONS Ensure. Usual Day: Wakes up at lunchtime, sometimes if up earlier will have cereal. L: cottage c fruit or yogurt, leftovers D: balanced meal with pro, starch and sometimes veg or fruit. Pt often wakes at midnight for snack or meal. Pt finishing last 7d potassium supplementation and excited to be done as she has trouble with the large pills. Pt using immodium every few days but never more than 2 pills, her diarrhea is mostly resolved. Nutrition Diagnosis: Severe chronic protein calorie malnutrition r/t disease related malnutrition without inflammation and sub-acute GI sx aeb 20% unintentional weight loss in 1y (severe), BMI 15.5 (severe), pt with chronic dry mouth and resolving diarrhea c associated hypokalemia, and fatigue. Interventions: 1. Provided Minced and Moist education packet and resource for appropriate recipes. 2. Pt to weight self once weekly to trend weights, pt making progress at weight repletion but still severely malnourished. Goal is to get to 100# in 2mo. 3. Collaborated c pt and [id number] on meal and snack planning which are high in kcal and protein to support LBM and nutrient repletion. Pt to have meal to microwave for midnight snack if she wakes. Family will use full fat dairy, nut butters stirred into batters, and high K+ foods to replete pt. EER: 1400kcals (35kcal/kg), 60g PRO (1.5g/kg per PCM) Monitoring/Evaluations: f/u prn Electronically Signed by: Shala Ramirez 04/09/22 11:03 Clinical Dietitian [address] [address]
== END ==
PROVIDERS: Family Provider Student in an Organized Health Care Education/Training Program; PCP Student in an Organized Health Care Education/Training Program; Referring Provider Student in an Organized Health Care Education/Training Program; Visit Provider Student in an Organized Health Care Education/Training Program
DX: E43 Unspecified severe protein-calorie malnutrition (principal); E87.6 Hypokalemia; K22.4 Dyskinesia of esophagus; Z68.1 Body mass index [BMI] 19.9 or less, adult
CPT/HCPCS: 97802

== ENCOUNTER → 2022-05-06 13:54 | Outpatient (CLI) | payer OTHER, SELFPAY ==
[2022-03-11 17:36] VITALS: BMI 14.8
[2022-05-06 15:08] LABS: Albumin 4.2 g/dL (3.5-5.0); BUN Creatinine Ratio 33.9 (6-22); Blood Urea Nitrogen 21 mg/dL (7-17); Calcium 9.1 mg/dL (8.4-10.2); Carbon Dioxide 29 mmol/L (22-32); Chloride 106 mmol/L (98-107); Estimated Glomerular Filt Rate > 60 mL/min (>60); Glucose 89 mg/dL (80-110); HEMOLYSIS < 15 (0-50); Potassium 4.2 mmol/L (3.4-5.1); Sodium 141 mmol/L (137-145)
[2022-05-06 15:15] LABS: Prealbumin 30.4 mg/dL (17.6-36.0)
== END ==
PROVIDERS: Family Provider Student in an Organized Health Care Education/Training Program; PCP Student in an Organized Health Care Education/Training Program; Referring Provider Student in an Organized Health Care Education/Training Program; Visit Provider Student in an Organized Health Care Education/Training Program
DX: E46 Unspecified protein-calorie malnutrition (principal); E87.6 Hypokalemia
CPT/HCPCS: 36415; 80048; 82040; 84134

== ENCOUNTER → 2022-06-30 10:05 | Outpatient (CLI) | payer OTHER, SELFPAY ==
[2022-03-11 17:36] VITALS: BMI 14.8
--- NOTE | 2022-06-30 10:07 | DI.RAD.S_ITS ---
PROCEDURE: XR KNEE LT 3V INDICATIONS: Knee pain; Reassess OA TECHNIQUE: Three views of the knee were acquired. COMPARISON: None. FINDINGS: Bones: Moderate medial compartment joint space loss. Severe patellofemoral compartment joint space loss and slight lateral patellar subluxation mild lateral compartment space loss. Moderate tricompartment osteophytes. Sclerosis and subcortical cystic change in the patellofemoral compartment.. Soft tissues: Probable small knee joint effusion. Moderate medial compartment chondrocalcinosis. Moderate atherosclerotic calcification. IMPRESSION: 1. 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 2. Medial compartment chondrocalcinosis. Dictated by: Mariella Mabry M.D. on 06/30/2022 at 11:38 Approved by: Mariella Mabry M.D. on 06/30/2022 at 11:44
== END ==
PROVIDERS: Family Provider Student in an Organized Health Care Education/Training Program; PCP Student in an Organized Health Care Education/Training Program; Referring Provider Student in an Organized Health Care Education/Training Program; Visit Provider Student in an Organized Health Care Education/Training Program
DX: M17.12 Unilateral primary osteoarthritis, left knee (principal); M11.262 Other chondrocalcinosis, left knee
CPT/HCPCS: 73562

== ENCOUNTER → 2023-02-27 | Outpatient (CLI) | payer OTHER, SELFPAY ==
[2022-03-11 17:36] VITALS: BMI 14.8
--- NOTE | 2023-02-27 12:19 | DI.RAD.S_ITS ---
PROCEDURE: XR DEXA AXIAL SKELETON INDICATIONS: concern for osteoporosis COMPARISON: [facility], JAZMINE, XR DEXA AXIAL SKELETON, 08/16/2020, 13:59. [facility], JAZMINE, XR DEXA AXIAL SKELETON, 03/01/2019, 13:39. FINDINGS: This blank DEXA report has been sent in error by the PACS system. The correct and complete report will be forthcoming in 1-2 days. Thank you for your patience and understanding. Dictated by: Foreign Armijo M.D. on 02/27/2023 at 13:25 Approved by: Foreign Armijo M.D. on 02/27/2023 at 13:25
--- NOTE | 2023-02-27 12:34 | DI.DEXA.S_ITS ---
Bone Density Report Name: DELORIS CALDERON Age: 88 Sex: Female Ethnicity: White Date of : 1935 Indication: postmenopausal osteoporosis; Referring Provider: PATRICIA HAMMER Study: Bone densitometry was performed. Exam Date: February 27, 2023 Accession number: [id number] Bone Density: Region BMD T-score Z-score Classification AP Spine(L1, L3, L4) 0.883 -1.5 1.3 Osteopenia Femoral Neck (Left) 0.592 -2.3 0.2 Osteopenia Total Hip (Left) 0.636 -2.5 -0.2 Osteoporosis Femoral Neck (Right) 0.677 -1.6 1.0 Osteopenia Total Hip (Right) 0.679 -2.2 0.2 Osteopenia Total Hip Mean 0.657 -2.4 0.0 Osteopenia World Health Organization criteria for BMD impression classify patients as: Normal (T-score at or above -1.0), Osteopenia (T-score between -1.0 and -2.5), or Osteoporosis (T-score at or below -2.5). 10-year Fracture Risk: FRAX not reported because: Some T-score for Spine Total or Hip Total or Femoral Neck at or below -2.5 Previous Exams: -- Region Exam Age BMD T-score BMD Change BMD Change Date g/cm2 vs Baseline vs Previous -- AP Spine (L1,L3-L4) 02/27/2023 88 0.883 -1.5 0.014 (1.7%)# 0.014 (1.7%)# 08/16/2020 85 0.869 -1.7 Total Hip(Left) 02/27/2023 88 0.636 -2.5 -0.007 (-1.0%)# -0.007 (-1.0%)# 08/16/2020 85 0.642 -2.5 Total Hip(Right) 02/27/2023 88 0.679 -2.2 -0.040 (-5.5%)# -0.040 (-5.5%)# 08/16/2020 85 0.719 -1.8 -- *Denotes significance at 95% confidence level, LSC for AP Spine = 0.022 g/cm2, LSC for Total Hip = 0.027 g/cm2 # Denotes dissimilar scan types or analysis methods Impression: The patient has osteoporosis, based on the Left Total Hip T-score. No significant bone loss was observed. Discussion: INCREASED RISK OF FRACTURE. BONE DENSITY IS UNDESIRABLY LOW AT ONE OR MORE SKELETAL SITES, CONSISTENT WITH POSTMENOPAUSAL OSTEOPOROSIS. This patient's lowest T-score meets the World Health Organization's (WHO) criteria for osteoporosis at one or more sites (T-score -2.5 or below). In untreated patients, the risk of osteoporotic fracture increases approximately two-fold for each 1.0 SD decrease in T-score. Low bone density is not the only risk factor for fracture; also consider factors such as patient's age, frailty or poor health, risk of falling, risk of injury, previous osteoporotic fracture, family history of osteoporosis, cigarette smoking, low body weight, etc. Not everyone with low bone mineral density has osteoporosis; osteomalacia and other metabolic bone disorders should also be considered. Patients who have osteoporosis should be evaluated for specific diseases and conditions (secondary causes) that may cause or contribute to bone loss. The [place] [employer] (AACE) and National Osteoporosis Foundation (NOF) recommend pharmacologic intervention for all postmenopausal women whose T-score is in this range. The patient should follow a healthful lifestyle (good nutrition with adequate calcium and vitamin D, and appropriate weight-bearing exercise). Follow-Up: Consider a repeat BMD and Vertebral Fracture Assessment (VFA) exam in 2 years or sooner if medically necessary, to reassess this patient's status. Reported by: SUSANNE CALDWELL M.D. on 02/27/2023 12:56:00 PM.
== END ==
PROVIDERS: Family Provider Student in an Organized Health Care Education/Training Program; PCP Pediatrics; Referring Provider Pediatrics; Visit Provider Pediatrics
DX: M81.0 Age-related osteoporosis without current pathological fracture (principal); E55.9 Vitamin D deficiency, unspecified
CPT/HCPCS: 77080

== ENCOUNTER → 2023-07-23 12:46 | Outpatient (CLI) | payer OTHER, SELFPAY ==
[2022-03-11 17:36] VITALS: BMI 14.8
--- NOTE | 2023-07-23 12:48 | DI.RAD.S_ITS ---
PROCEDURE: FL UPPER GI W AIR INDICATIONS: Dysphagia, unspecified COMPARISON: [facility], , UPPER GI AIR CONTRAST WITH KUB, 02/12/2007, 8:20. [facility], , FL BARIUM SWALLOW W SPEECH, 08/12/2021, 14:47. [facility], CR, XR SMALL BOWEL FOLLOW THROUGH WITH BARIUM, 10/15/2021, 9:49. FINDINGS: KUB: Preprocedural faith healer film demonstrates a normal bowel gas pattern. No suspicious abdominal calcifications. Visualized solid organ contours appear normal. Moderate levoscoliosis. Degenerative changes noted in lumbar spine. There is a moderate amount of stool in colon. Esophagus: Esophageal mucosa is normal on air-contrast views. On single-contrast views, there is moderate esophageal dysmotility with disorganized tertiary contractions. No strictures, extrinsic mass effects, or diverticula. Small slightly hiatal hernia. There is severe gastroesophageal reflux elicited during the examination. There is normal transit of a calibrated barium tablet through the esophagus. Stomach: The stomach is distended. No mucosal masses or ulcers. Pylorus and duodenal bulb appear normal in morphology. Duodenal folds are normal in thickness as well. IMPRESSION: 1. Moderate esophageal dysmotility. 2. Severe gastroesophageal reflux. 3. Small sliding hiatal hernia. 4. Unremarkable stomach and duodenum. Dictated by: Andrei Calderón M.D. on 07/23/2023 at 16:09 Approved by: Andrei Calderón M.D. on 07/23/2023 at 16:16
== END ==
PROVIDERS: Family Provider Student in an Organized Health Care Education/Training Program; PCP Pediatrics; Referring Provider Internal Medicine Gastroenterology; Visit Provider Internal Medicine Gastroenterology
DX: K22.4 Dyskinesia of esophagus (principal); R13.10 Dysphagia, unspecified; K21.9 Gastro-esophageal reflux disease without esophagitis; K44.9 Diaphragmatic hernia without obstruction or gangrene
CPT/HCPCS: 74246

== ENCOUNTER → 2023-09-02 15:49 | Outpatient (CLI) | payer OTHER, SELFPAY ==
[2022-03-11 17:36] VITALS: BMI 14.8
--- NOTE | 2023-09-02 15:51 | DI.CT.S_ITS ---
PROCEDURE: CT HEAD/BRAIN WO CON INDICATIONS: fall, head injury TECHNIQUE: Noncontrast 4.5 mm thick angled axial sections acquired from the foramen magnum to the vertex, with coronal and sagittal reformats. For radiation dose reduction, the following was used: automated exposure control, adjustment of mA and/or kV according to patient size. COMPARISON: [facility], CT, HEAD WITHOUT CONTRAST, 08/26/2013, 12:58. FINDINGS: Image quality: There is artifact associated with the metallic hardware. Artifact from the metallic hardware is reduced by metal reconstruction algorithm. CSF spaces: Basal cisterns are patent. No extra-axial fluid collections. The ventricles are symmetric in size and shape. Brain: No intracranial bleeds or masses. There is cerebral volume loss for age, with resultant ventricular and sulcal prominence. There are periventricular and deep white matter chronic small vessel ischemic changes. There is intracranial internal carotid artery atherosclerosis. Skull and face: Calvarium and visualized facial bones appear intact, without suspicious lesions. 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 Sinuses: Visualized sinuses and mastoids are clear. IMPRESSION: Limited study demonstrating no findings of acute intracranial hemorrhage or other acute intracranial abnormality. Dictated by: Andrew Keys M.D. on 09/02/2023 at 15:40 Approved by: Andrew Keys M.D. on 09/02/2023 at 15:41
== END ==
LOC: CT 15:50
PROVIDERS: Family Provider Student in an Organized Health Care Education/Training Program; PCP Internal Medicine; Referring Provider Internal Medicine; Visit Provider Internal Medicine
DX: S09.90XA Unspecified injury of head, initial encounter (principal); I65.29 Occlusion and stenosis of unspecified carotid artery; X58.XXXA Exposure to other specified factors, initial encounter
CPT/HCPCS: 70450

== ENCOUNTER → 2023-09-03 10:42 | Outpatient (CLI) | payer OTHER, SELFPAY ==
[2022-03-11 17:36] VITALS: BMI 14.8
[2023-09-03 12:08] LABS: Hemoglobin 12.5 g/dL (12.0-16.0); Mean Corpuscular HGB Conc 33.7 % (30-36); Mean Corpuscular Hemoglobin 33.3 PG (26-34); Mean Corpuscular Volume 98.9 fL (80-100); Platelet Count 237 X10^3/uL (150-400); Red Blood Cell Count 3.74 X10^6/uL (4.0-5.2); Red Cell Distribution Width 14.1 % (11.6-14.8); White Blood Cell Count 4.1 X10^3/uL (4.5-11.0)
[2023-09-03 12:38] LABS: Alanine Aminotransferase 6 IU/L (<35); Albumin 4.2 g/dL (3.5-5.0); Albumin Globulin Ratio 1.4 (1.0-2.8); Alkaline Phosphatase 51 U/L (38-126); Aspartate Aminotransferase 21 IU/L (14-36); BUN Creatinine Ratio 35.6 (6-22); Bilirubin Total 0.9 mg/dL (0.2-1.3); Blood Urea Nitrogen 21 mg/dL (7-17); Calcium 9.3 mg/dL (8.4-10.2); Carbon Dioxide 31 mmol/L (22-32); Chloride 105 mmol/L (98-107); Cholesterol 195 mg/dL (140-199); Estimated Glomerular Filt Rate > 60 mL/min (>60); Globulin 2.9 g/dL (1.7-4.1); Glucose 111 mg/dL (80-110); HDL Cholesterol 48 mg/dL (40-60); HEMOLYSIS < 15 (0-50); LDL Cholesterol Calculated 115 mg/dL (<100); Potassium 4.4 mmol/L (3.4-5.1); Sodium 139 mmol/L (137-145); Total Protein 7.1 g/dL (6.3-8.2); Triglycerides 160 mg/dL (35-150)
[2023-09-03 13:02] LABS: TSH w/ Reflex to FT4 0.24 uIU/mL (0.47-4.68)
[2023-09-03 13:24] LABS: Vitamin B12 > 1000 pg/mL (239-931)
[2023-09-03 13:42] LABS: Free T4, Direct Thyroxine 1.36 ng/dL (0.78-2.19)
== END ==
PROVIDERS: Family Provider Student in an Organized Health Care Education/Training Program; PCP Internal Medicine; Referring Provider Internal Medicine; Visit Provider Internal Medicine
DX: E53.8 Deficiency of other specified B group vitamins (principal); E03.9 Hypothyroidism, unspecified; G20.A1 Parkinson's disease without dyskinesia, without mention of fluctuations
CPT/HCPCS: 36415; 80053; 80061; 82607; 84439; 84443; 85027

== ENCOUNTER → 2023-11-11 14:00 | Outpatient (CLI) | payer OTHER, SELFPAY ==
[2022-03-11 17:36] VITALS: BMI 14.8
== END ==
LOC: LAB 14:06
PROVIDERS: Family Provider Student in an Organized Health Care Education/Training Program; PCP Internal Medicine; Visit Provider Student in an Organized Health Care Education/Training Program
DX: S91.109A Unspecified open wound of unspecified toe(s) without damage to nail, initial encounter (principal)
CPT/HCPCS: 87070; 87075; 87077; 87186; 87205

== ENCOUNTER → 2023-11-12 15:31 | Outpatient (CLI) | payer OTHER, SELFPAY ==
[2022-03-11 17:36] VITALS: BMI 14.8
[2023-11-12 18:03] LABS: TSH w/ Reflex to FT4 0.77 uIU/mL (0.47-4.68)
== END ==
PROVIDERS: Family Provider Student in an Organized Health Care Education/Training Program; PCP Internal Medicine; Referring Provider Internal Medicine; Visit Provider Internal Medicine
DX: E03.9 Hypothyroidism, unspecified (principal)
CPT/HCPCS: 36415; 84443

== ENCOUNTER → 2023-11-23 12:59 | Outpatient (CLI) | payer OTHER, SELFPAY ==
[2022-03-11 17:36] VITALS: BMI 14.8
== END ==
LOC: WC 13:03
PROVIDERS: Family Provider Student in an Organized Health Care Education/Training Program; PCP Internal Medicine; Referring Provider Student in an Organized Health Care Education/Training Program; Visit Provider Surgery
DX: L89.893 Pressure ulcer of other site, stage 3 (principal); L53.9 Erythematous condition, unspecified; G20.A1 Parkinson's disease without dyskinesia, without mention of fluctuations; M20.42 Other hammer toe(s) (acquired), left foot
CPT/HCPCS: 11042; 87070; 87075; 87205; 99203; 99214

== ENCOUNTER → 2023-12-01 08:36 | Outpatient (CLI) | payer OTHER, SELFPAY ==
[2022-03-11 17:36] VITALS: BMI 14.8
== END ==
PROVIDERS: Family Provider Student in an Organized Health Care Education/Training Program; PCP Internal Medicine; Referring Provider Internal Medicine; Visit Provider Surgery
DX: L89.893 Pressure ulcer of other site, stage 3 (principal); L53.9 Erythematous condition, unspecified
CPT/HCPCS: 11042

== ENCOUNTER → 2023-12-01 14:20 | Outpatient (CLI) | payer OTHER, SELFPAY ==
[2022-03-11 17:36] VITALS: BMI 14.8
--- NOTE | 2023-12-01 14:23 | DI.RAD.S_ITS ---
PROCEDURE: XR FOOT LT MIN 3V INDICATIONS: Eval for osteo l 2nd toe TECHNIQUE: 3 views of the foot were acquired. COMPARISON: None. FINDINGS: Bones: No fractures or dislocations. No suspicious bony lesions. Generalized decreased osseous mineralization noted. Moderate calcaneal spur present. There is varus angulation of the 1st metatarsal with compensatory valgus angulation of the 1st proximal phalanx reflecting hallux valgus. Degenerative erosions noted involving the 2nd metatarsophalangeal joint Soft tissues: No tibiotalar joint effusion. Achilles tendon appears normal. 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 No lytic lesion to suggest osteomyelitis. If there is clinical concern for osteomyelitis, consider 3 phase bone scan or MRI Hallux valgus Approved by: Larry Lazo M.D. on 12/01/2023 at 18:22
== END ==
PROVIDERS: Family Provider Student in an Organized Health Care Education/Training Program; PCP Internal Medicine; Referring Provider Surgery; Visit Provider Surgery
DX: L08.9 Local infection of the skin and subcutaneous tissue, unspecified (principal); M20.12 Hallux valgus (acquired), left foot; M85.872 Other specified disorders of bone density and structure, left ankle and foot
CPT/HCPCS: 73630

== ENCOUNTER → 2023-12-14 14:58 | Outpatient (CLI) | payer OTHER, SELFPAY ==
[2022-03-11 17:36] VITALS: BMI 14.8
== END ==
LOC: WC 14:58
PROVIDERS: Family Provider Student in an Organized Health Care Education/Training Program; PCP Internal Medicine; Referring Provider Internal Medicine; Visit Provider Surgery
DX: L89.893 Pressure ulcer of other site, stage 3 (principal); L53.9 Erythematous condition, unspecified
CPT/HCPCS: 11042

== ENCOUNTER → 2023-12-22 14:16 | Outpatient (CLI) | payer OTHER, SELFPAY ==
[2022-03-11 17:36] VITALS: BMI 14.8
== END ==
LOC: WC 14:17
PROVIDERS: Family Provider Student in an Organized Health Care Education/Training Program; PCP Internal Medicine; Referring Provider Internal Medicine; Visit Provider Surgery
DX: L89.893 Pressure ulcer of other site, stage 3 (principal); L53.9 Erythematous condition, unspecified
CPT/HCPCS: 11042; 99213

== ENCOUNTER → 2023-12-28 14:51 | Outpatient (CLI) | payer OTHER, SELFPAY ==
[2022-03-11 17:36] VITALS: BMI 14.8
== END ==
LOC: WC 14:52
PROVIDERS: Family Provider Student in an Organized Health Care Education/Training Program; PCP Internal Medicine; Referring Provider Internal Medicine; Visit Provider Surgery
DX: L89.893 Pressure ulcer of other site, stage 3 (principal); L53.9 Erythematous condition, unspecified
CPT/HCPCS: 97602; 99213

== ENCOUNTER → 2024-01-11 13:59 | Outpatient (CLI) | payer OTHER, SELFPAY ==
[2022-03-11 17:36] VITALS: BMI 14.8
== END ==
LOC: WC 14:00
PROVIDERS: Family Provider Student in an Organized Health Care Education/Training Program; PCP Internal Medicine; Referring Provider Internal Medicine; Visit Provider Surgery
DX: L89.893 Pressure ulcer of other site, stage 3 (principal); L53.9 Erythematous condition, unspecified
CPT/HCPCS: 11042

== ENCOUNTER → 2024-01-13 15:53 | Outpatient (CLI) | payer OTHER, SELFPAY ==
[2022-03-11 17:36] VITALS: BMI 14.8
--- NOTE | 2024-01-13 15:55 | DI.NM.S_ITS ---
PROCEDURE: NM BONE 3 PHASE RADIOPHARMACEUTICAL: 21.7 mCi Tc-99m MDP IV. INDICATIONS: non healing ulcer on left second toe - probe to bone TECHNIQUE: Multiple bone scintigrams were obtained after intravenous injection of Tc-99m MDP, including flow, blood pool, and delayed images centered to the region of interest. COMPARISON: [facility], CR, XR FOOT LT MIN 3V, 12/01/2023, 14:23. FINDINGS: A triple phase bone scan was obtained, including flow, blood pool and delayed images of the ankles and feet. The flow and blood pool images demonstrate increased vascular activity and the tip of the 2nd toe. Delayed images demonstrate increased activity in the distal left 2nd toe. The scintigraphic findings are suspicious for osteomyelitis. There is overall poor osseous uptake, likely secondary to peripheral vascular disease. Delayed uptake are also seen in multiple intertarsal, tarsometatarsal, metatarsophalangeal and interphalangeal joints, compatible with degenerative/arthritic changes. IMPRESSION: Increased flow, blood pool and delayed uptake in the left 2nd toe and 3rd toe, compatible with osteomyelitis. Dictated by: Andrei Calderón M.D. on 01/14/2024 at 16:27 Approved by: Andrei Calderón M.D. on 01/15/2024 at 8:55
== END ==
PROVIDERS: Family Provider Student in an Organized Health Care Education/Training Program; PCP Internal Medicine; Referring Provider Surgery; Visit Provider Surgery
DX: L97.529 Non-pressure chronic ulcer of other part of left foot with unspecified severity (principal); R19.7 Diarrhea, unspecified
CPT/HCPCS: 78315; 87324; A9503

== ENCOUNTER → 2024-01-13 15:55 | Outpatient (CLI) | payer OTHER, SELFPAY ==
[2022-03-11 17:36] VITALS: BMI 14.8
== END ==
PROVIDERS: Family Provider Student in an Organized Health Care Education/Training Program; PCP Internal Medicine; Referring Provider Internal Medicine; Visit Provider Internal Medicine
DX: R19.7 Diarrhea, unspecified (principal)
CPT/HCPCS: 87324

== ENCOUNTER → 2024-01-18 15:39 | Outpatient (CLI) | payer OTHER, SELFPAY ==
[2022-03-11 17:36] VITALS: BMI 14.8
== END ==
LOC: WC 15:40
PROVIDERS: Family Provider Student in an Organized Health Care Education/Training Program; PCP Internal Medicine; Referring Provider Internal Medicine; Visit Provider Surgery
DX: L89.893 Pressure ulcer of other site, stage 3 (principal)
CPT/HCPCS: 99213

== ENCOUNTER → 2024-02-04 14:03 | Outpatient (CLI) | payer OTHER, SELFPAY ==
[2022-03-11 17:36] VITALS: BMI 14.8
== END ==
LOC: WC 14:04
PROVIDERS: Family Provider Student in an Organized Health Care Education/Training Program; PCP Internal Medicine; Referring Provider Internal Medicine; Visit Provider Surgery
DX: L89.893 Pressure ulcer of other site, stage 3 (principal)
CPT/HCPCS: 11042; 87070; 87075; 87205; 99213

== ENCOUNTER → 2024-02-18 14:54 | Outpatient (CLI) | payer OTHER, SELFPAY ==
[2022-03-11 17:36] VITALS: BMI 14.8
[2024-02-18 15:14] LABS: Add Manual Diff / Slide Review NO; Basophils Absolute Auto 0 /uL (0-100); Basophils Percent Auto 1.1 % (0-2); Eosinophils Absolute Auto 100 /uL (0-450); Eosinophils Percent Auto 3.6 % (2-4); Hemoglobin 12.2 g/dL (12.0-16.0); Lymphocytes Absolute Auto 1100 /uL (1100-4500); Mean Corpuscular Hemoglobin 33.7 PG (26-34); Monocytes Absolute Auto 500 /uL (0-900); Monocytes Percent Auto 13.5 % (3-14); Neutrophils Absolute Auto 2100 /uL (1500-7000); Neutrophils Percent Auto 53.8 % (50-75); Platelet Count 250 X10^3/uL (150-400); Red Blood Cell Count 3.63 X10^6/uL (4.0-5.2); Red Cell Distribution Width 14.3 % (11.6-14.8)
[2024-02-18 15:58] LABS: Erythrocyte Sedimentation Rate 14 MM/HR (0-20)
[2024-02-18 17:18] LABS: Alanine Aminotransferase 6 IU/L (<35); Albumin 4.2 g/dL (3.5-5.0); Albumin Globulin Ratio 1.5 (1.0-2.8); Alkaline Phosphatase 69 U/L (38-126); Aspartate Aminotransferase 23 IU/L (14-36); BUN Creatinine Ratio 32.9 (6-22); Bilirubin Total 0.7 mg/dL (0.2-1.3); Blood Urea Nitrogen 24 mg/dL (7-17); C-Reactive Protein Quant < 0.5 mg/dL (<1.0); Calcium 9.1 mg/dL (8.4-10.2); Carbon Dioxide 32 mmol/L (22-32); Chloride 107 mmol/L (98-107); Estimated Glomerular Filt Rate > 60 mL/min (>60); Globulin 2.8 g/dL (1.7-4.1); Glucose 95 mg/dL (80-110); HEMOLYSIS < 15 (0-50); Potassium 4.9 mmol/L (3.4-5.1); Sodium 141 mmol/L (137-145)
== END ==
PROVIDERS: Family Provider Student in an Organized Health Care Education/Training Program; PCP Internal Medicine; Referring Provider Surgery; Visit Provider Surgery
DX: L89.893 Pressure ulcer of other site, stage 3 (principal)
CPT/HCPCS: 36415; 80053; 85025; 85651; 86140

== ENCOUNTER → 2024-03-03 13:52 | Outpatient (CLI) | payer OTHER, SELFPAY ==
[2022-03-11 17:36] VITALS: BMI 14.8
== END ==
LOC: WC 13:53
PROVIDERS: Family Provider Student in an Organized Health Care Education/Training Program; PCP Internal Medicine; Referring Provider Internal Medicine; Visit Provider Nurse Practitioner Family
DX: L89.893 Pressure ulcer of other site, stage 3 (principal); L53.9 Erythematous condition, unspecified; I73.9 Peripheral vascular disease, unspecified; Z79.2 Long term (current) use of antibiotics
CPT/HCPCS: 11044; 99214

== ENCOUNTER → 2024-07-01 14:09 | Outpatient (CLI) | payer OTHER, SELFPAY ==
[2022-03-11 17:36] VITALS: BMI 14.8
== END ==
LOC: WC 14:10
PROVIDERS: Family Provider Student in an Organized Health Care Education/Training Program; PCP Internal Medicine; Referring Provider Internal Medicine; Visit Provider Physician Assistant
DX: L89.893 Pressure ulcer of other site, stage 3 (principal)
CPT/HCPCS: 11042; 99213

== ENCOUNTER → 2024-07-28 13:46 | Outpatient (CLI) | payer OTHER, SELFPAY ==
[2022-03-11 17:36] VITALS: BMI 14.8
--- NOTE | 2024-07-28 13:48 | DI.CT.S_ITS ---
PROCEDURE: CT ANGIO UE LT INDICATIONS: left arm pulseless TECHNIQUE: After the administration of intravenous contrast, 2.5 mm sections acquired from the aortic arch through the symptomatic arm, with optional delayed image acquisition from the elbows to the fingers. 3-dimensional maximum intensity projection (MIP) coronal and sagital reformats, and/or 3-dimensional volume rendering reformatting was then performed. For radiation dose reduction, the following was used: automated exposure control. COMPARISON: None. FINDINGS: Image quality: Adequate Thoracic aorta: Not imaged in its entirety, where imaged is patent with atherosclerotic changes and without definite aneurysm or dissection. Great vessels: Partially imaged. The brachiocephalic artery is patent. The origin of the right subclavian artery is not well imaged, the origin of the right common carotid artery appears patent. The imaged left common carotid artery is patent. The left subclavian artery is occluded at its origin and reconstitutes in the neck, presumably from a small caliber left vertebral artery but this is not clearly identified as it is at the upper extreme of the imaging plane. Upper extremity: The remainder of the left subclavian artery and axillary artery distal to the level of the vertebral artery are patent with asked with atherosclerotic changes. The brachial artery is patent. The radial artery is patent into the forearm distally. The ulnar artery is not well opacified in may be multifocally stenosed. The interosseous artery appears patent proximally. Extravascular tissues: Unremarkable IMPRESSION: 1. 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 2. Radial artery opacified with inline flow to the level of the distal forearm/wrist. Ulnar artery not well opacified with contrast seen intermittently possibly related to poor inflow versus disease. Further evaluation with catheter angiography as clinically indicated. Dictated by: Alvarado Alicea M.D. on 07/28/2024 at 15:15 Approved by: Alvarado Alicea M.D. on 07/28/2024 at 15:27
== END ==
PROVIDERS: Family Provider Student in an Organized Health Care Education/Training Program; PCP Internal Medicine; Referring Provider Internal Medicine; Visit Provider Internal Medicine
DX: I73.9 Peripheral vascular disease, unspecified (principal)
CPT/HCPCS: 73206; Q9967

== ENCOUNTER → 2024-09-14 17:06 | Outpatient (CLI) | payer MEDICARE, SELFPAY ==
[2022-03-11 17:36] VITALS: BMI 14.8
--- NOTE | 2024-09-14 17:08 | DI.RAD.S_ITS ---
PROCEDURE: XR FOOT LT MIN 3V INDICATIONS: chronic wound to 2/3 toe, hx osteomyelitis amputation TECHNIQUE: 3 views of the foot were acquired. COMPARISON: [facility], CR, XR FOOT LT MIN 3V, 12/01/2023, 14:23. FINDINGS: Bones: Severe hallux valgus, pes cavus and hammertoe deformities 1st through 5th digits appreciated. Since prior exam 2nd and 3rd ray amputation changes at the PIP level show typical postop appearance. Joints: Mild 1st MTP , severe 1st DIP 4th and 5th interphalangeal and 1st through 5th MTT degeneration degenerative change appreciated. There is periarticular erosive change in the articular surface of the proximal 2nd phalanx which could indicate infectious arthritis of the 2nd MTP joint Soft tissues: Diffuse soft swelling noted IMPRESSION: Diffuse soft tissue swelling which may indicate cellulitis or edema. Erosive changes in the articular base of the 2nd proximal phalanx could indicate infectious arthritis in the 2nd MTP joint. This is new from the previous study . This is a subtle finding . In the absence of point tenderness and erythema in this area, it is likely merely atypical degeneration Second and 3rd ray amputation changes at the PIP level that typical postop appearance Other chronic findings as described Dictated by: Lex Coe M.D. on 09/15/2024 at 17:37 Approved by: Lex Coe M.D. on 09/15/2024 at 17:42
[2024-09-14 17:52] LABS: Hematocrit 34.5 % (36-46); Hemoglobin 11.7 g/dL (12.0-16.0); Mean Corpuscular HGB Conc 33.8 % (30-36); Mean Corpuscular Hemoglobin 33.9 PG (26-34); Mean Corpuscular Volume 100.3 fL (80-100); Platelet Count 240 X10^3/uL (150-400); Red Blood Cell Count 3.44 X10^6/uL (4.0-5.2); Red Cell Distribution Width 13.6 % (11.6-14.8); White Blood Cell Count 4.6 X10^3/uL (4.5-11.0)
[2024-09-14 18:26] LABS: Alanine Aminotransferase 4 IU/L (<35); Albumin 4.1 g/dL (3.5-5.0); Albumin Globulin Ratio 1.6 (1.0-2.8); Alkaline Phosphatase 56 U/L (38-126); Aspartate Aminotransferase 26 IU/L (14-36); BUN Creatinine Ratio 38.2 (6-22); Bilirubin Total 0.4 mg/dL (0.2-1.3); Blood Urea Nitrogen 26 mg/dL (7-17); Carbon Dioxide 27 mmol/L (22-32); Chloride 110 mmol/L (98-107); Cholesterol 192 mg/dL (140-199); Estimated Glomerular Filt Rate > 60 mL/min (>60); Globulin 2.6 g/dL (1.7-4.1); Glucose 90 mg/dL (80-110); HDL Cholesterol 49 mg/dL (40-60); HEMOLYSIS < 15 (0-50); LDL Cholesterol Calculated 110 mg/dL (<100); Potassium 4.1 mmol/L (3.4-5.1); Sodium 141 mmol/L (137-145); Total Protein 6.7 g/dL (6.3-8.2); Triglycerides 164 mg/dL (35-150)
[2024-09-14 18:54] LABS: TSH w/ Reflex to FT4 0.08 uIU/mL (0.47-4.68)
[2024-09-14 20:43] LABS: Free T4, Direct Thyroxine 1.12 ng/dL (0.78-2.19)
== END ==
LOC: RAD 17:07
PROVIDERS: PCP Internal Medicine; Referring Provider Internal Medicine; Visit Provider Internal Medicine
DX: M86.9 Osteomyelitis, unspecified (principal); E03.9 Hypothyroidism, unspecified; I73.9 Peripheral vascular disease, unspecified; E46 Unspecified protein-calorie malnutrition; M20.12 Hallux valgus (acquired), left foot; M20.42 Other hammer toe(s) (acquired), left foot; M79.89 Other specified soft tissue disorders; Z89.422 Acquired absence of other left toe(s)
CPT/HCPCS: 36415; 73630; 80053; 80061; 84439; 84443; 85027

== ENCOUNTER → 2024-09-28 14:25 | Outpatient (CLI) | payer MEDICARE, SELFPAY ==
[2022-03-11 17:36] VITALS: BMI 14.8
== END ==
PROVIDERS: PCP Internal Medicine; Referring Provider Internal Medicine; Visit Provider Surgery
DX: L89.893 Pressure ulcer of other site, stage 3 (principal); R23.3 Spontaneous ecchymoses; R60.0 Localized edema; I73.9 Peripheral vascular disease, unspecified
CPT/HCPCS: 11042; 87070; 87075; 87077; 87186; 87205; 99213

== ENCOUNTER → 2024-10-05 15:04 | Outpatient (CLI) | payer MEDICARE, SELFPAY ==
[2022-03-11 17:36] VITALS: BMI 14.8
== END ==
LOC: WC 15:04
PROVIDERS: PCP Internal Medicine; Referring Provider Internal Medicine; Visit Provider Surgery
DX: L89.893 Pressure ulcer of other site, stage 3 (principal); R60.0 Localized edema
CPT/HCPCS: 11042

== ENCOUNTER → 2024-12-08 14:36 | Outpatient (CLI) | payer MEDICARE, SELFPAY ==
[2022-03-11 17:36] VITALS: BMI 14.8
== END ==
LOC: WC 14:36
PROVIDERS: PCP Internal Medicine; Referring Provider Internal Medicine; Visit Provider Surgery
DX: L89.893 Pressure ulcer of other site, stage 3 (principal); L98.8 Other specified disorders of the skin and subcutaneous tissue; I73.9 Peripheral vascular disease, unspecified
CPT/HCPCS: 11042

== ENCOUNTER → 2024-12-21 14:01 | Outpatient (CLI) | payer MEDICARE, SELFPAY ==
[2022-03-11 17:36] VITALS: BMI 14.8
== END ==
LOC: WC 14:02
PROVIDERS: PCP Internal Medicine; Referring Provider Internal Medicine; Visit Provider Surgery
DX: Z87.2 Personal history of diseases of the skin and subcutaneous tissue (principal)
CPT/HCPCS: 99213